=== PATIENT | female | born 1975 | race Caucasian/White ===

== ENCOUNTER → 2022-06-20 | Outpatient (CLI) | payer OTHER, SELFPAY ==
--- NOTE | 2022-06-20 13:30 | BI_ITS ---
MAMMOGRAPHY - BILATERAL SCREENING REASON FOR EXAM: Female, 47 years old. Routine annual screening examination. PERTINENT HISTORY: Non-contributory. TECHNIQUE: Digital bilateral breast darnell (3D mammographic acquisition) in the CC and MLO projections. 2-D mediolateral oblique (MLO) and craniocaudad (CC) views of both breasts were obtained. CAD: Full Field Digital Mammography with Computer Added Detection was performed. COMPARISON: Comparison is made with prior outside examination April 27, 2021. FINDINGS: Breast Composition: The breasts are heterogeneously dense, which may obscure small masses. There are no dominant masses or suspicious calcifications. No other significant abnormalities are identified. There has been no significant change since the prior study. BI/SCRN MAMM (CAD)W/DARNELL BILAT IMPRESSION: Stable bilateral screening mammogram. Yearly follow-up mammogram recommended. (A) ASSESSMENT CATEGORY: BIRADS Category 1: Negative. A letter regarding these results will be sent to the patient by the facility within 30 days. Approximately 10% of breast cancers are not detected by mammography. A normal mammogram should not delay biopsy of a clinically suspicious abnormality. [id number] Electronically Signed: Vincent Lay MD at 14:41 EDT ,
== END | disposition home or self-care (01) ==
PROVIDERS: PCP Family Medicine; Referring Provider Family Medicine; Visit Provider Family Medicine
DX: Z12.31 Encounter for screening mammogram for malignant neoplasm of breast (principal)
CPT/HCPCS: 77063; 77067

== ENCOUNTER → 2022-06-21 | Outpatient (CLI) | payer OTHER, SELFPAY ==
[2022-06-28 21:40] LABS: HPV HC, High Risk Negative
== END | disposition home or self-care (01) ==
PROVIDERS: PCP Family Medicine; Visit Provider Nurse Practitioner Family
DX: Z12.4 Encounter for screening for malignant neoplasm of cervix (principal)
CPT/HCPCS: 87624; 88175; G0145

== ENCOUNTER → 2022-06-29 | Outpatient (CLI) | payer OTHER, SELFPAY ==
[2022-06-29 17:51] LABS: Absolute Lymphocyte Count 2.58 X10^3/uL (0.83-4.51); Absolute Neutrophil Count 6.5 X10^3/uL (2.0-7.7); Basophil# 0.03 X10^3/uL; Basophil% 0.3 % (0-1); Eosinophil# 0.19 X10^3/uL; Eosinophils% 1.9 % (0-5); Hematocrit 41.3 % (37-47); Hemoglobin 14.1 g/dL (12.0-15.0); Lymphocyte # 2.58 X10^3/ul (0.83-4.51); Lymphocyte % 26.1 % (19-41); Mean Corp Hgb Conc 34.1 g/dL (32-36); Mean Corpuscular Hgb 30.2 pg (27.0-32.0); Mean Corpuscular Volume 88.4 fL (81-99); Monocyte# 0.59 X10^3/uL; NRBC Flagged by Analyzer 0 % (0-5); Neutrophil # 6.48 X10^3/uL (2.7-7.7); Neutrophil % 65.4 % (47-70); Platelet Count 275 K/mm3 (150-450); RBC Distribution Width CV 12.9 % (11.6-14.6); RBC Distribution Width SD 41.5 fl (35.1-43.9); Red Blood Count 4.67 M/mm3 (4.2-5.4); White Blood Count 9.9 K/mm3 (4.4-11.0)
[2022-06-29 18:09] LABS: ALB/GLOB Ratio 0.7 RATIO (0.9-2.4); AST(SGOT) < 3 U/L (15-37); Alanine Aminotransfer ALT/SGPT 23 U/L (13-56); Albumin, Serum 3.7 g/dL (3.2-5.0); Alkaline Phosphatase 73 U/L (45-117); Anion Gap 8 (5-15); BUN 13 mg/dL (7-18); BUN/Creat Ratio 13.3 RATIO (10-20); Calcium,Total 8.8 mg/dL (8.5-10.1); Chloride 107 mmol/L (98-107); Creatinine, Serum 0.98 mg/dL (0.55-1.02); EST Glomerular Filtration Rate 64 mL/min (>60); Est Glom Filt Rate - Afr Amer 78 mL/min (>60); Glucose 105 mg/dL (74-106); Potassium 3.7 mmol/L (3.5-5.1); Protein, Total 8.7 g/dL (6.4-8.2); Sodium Level 139 mmol/L (136-145); Thyroid Stim Hormone (TSH) 4.53 uIU/mL (0.358-3.74)
[2022-06-29 18:53] LABS: Hemoglobin A1c 4.8 % (3.8-5.6)
== END | disposition home or self-care (01) ==
PROVIDERS: PCP Family Medicine; Referring Provider Family Medicine; Visit Provider Family Medicine
DX: Z00.00 Encounter for general adult medical examination without abnormal findings (principal); Z13.1 Encounter for screening for diabetes mellitus; Z13.220 Encounter for screening for lipoid disorders; Z13.29 Encounter for screening for other suspected endocrine disorder; Z13.0 Encounter for screening for diseases of the blood and blood-forming organs and certain disorders involving the immune mechanism
CPT/HCPCS: 36415; 80053; 83036; 84443; 85025

== ENCOUNTER → 2022-08-16 | Outpatient (CLI) | payer OTHER, SELFPAY ==
[2022-08-16 15:40] LABS: Free T3 2.6 pg/mL (2.18-3.98); Thyroid Stim Hormone (TSH) 6.02 uIU/mL (0.358-3.74)
[2022-08-18 18:07] LABS: Anti-Thyroglobulin AB < 1.0 IU/mL (0.0-0.9); Thyroglobulin, Serum Qt. 26.1 ng/mL (1.5-38.5); Thyroid Peroxidase AB 37 IU/mL (0-34)
== END | disposition home or self-care (01) ==
LOC: MTLAB 13:06
PROVIDERS: PCP Family Medicine; Referring Provider Family Medicine; Visit Provider Family Medicine
DX: R79.89 Other specified abnormal findings of blood chemistry (principal)
CPT/HCPCS: 36415; 84432; 84439; 84443; 84481; 86376; 86800

== ENCOUNTER → 2022-11-11 | Outpatient (CLI) | payer OTHER, SELFPAY ==
[2022-11-11 10:55] LABS: Thyroid Stim Hormone (TSH) 4.19 uIU/mL (0.358-3.74)
== END | disposition home or self-care (01) ==
LOC: MTLAB 09:04
PROVIDERS: PCP Family Medicine; Referring Provider Family Medicine; Visit Provider Family Medicine
DX: E03.9 Hypothyroidism, unspecified (principal)
CPT/HCPCS: 36415; 84443

== ENCOUNTER → 2023-01-13 | Outpatient (CLI) | payer OTHER, SELFPAY ==
[2023-01-13 10:56] LABS: T4 Free Direct 1.14 ng/dL (0.76-1.46); Thyroid Stim Hormone (TSH) 1.94 uIU/mL (0.358-3.74)
== END | disposition home or self-care (01) ==
LOC: MTLAB 08:37
PROVIDERS: PCP Family Medicine; Referring Provider Family Medicine; Visit Provider Family Medicine
DX: E03.9 Hypothyroidism, unspecified (principal)
CPT/HCPCS: 36415; 84439; 84443

== ENCOUNTER 2023-01-17 09:00 | Outpatient (RCR) | payer OTHER, SELFPAY ==
--- NOTE | 2022-11-17 15:07 | HP.PTEVAL ---
Patient's Visit Information Visit Information Visit Information: JULIANNE DELANEY is a 47 year old F referred to Physical Therapy by Amy Holden DO with a diagnosis of R ankle pain. Date of Evaluation: 11/17/22 Physical Therapist: JAYLON Lockwood Visit Plan Frequency: 1-2x /Week Duration: 2 Months Plan: 1-2X/ week for 6 weeks for R ankle stretching (foam rollling), gait training, R ankle strength, balance and proprioception, with HEP HEP: standing heel and toe raises and towel gastroc stretch Subjective Subjective: Horse back riding accident years ago and put in a boot and no rehab. Progressively work. 2 MRI's. Walking on uneven ground hot and painful. The whole ankle hurts. She has had Plantar Fasciitis and orthotics. She had done some PT in [place] a year or so again and did a HEP and that has been over a year ago. Stretching does make it feel better. Pt wants to explore PT and room for improvement. She can not go up and down the stairs when it is flared up and it feels unstable. She has done a wobble board before and did not do much for me. If it is flared up she can't sleep but normally she can sleep. It is always swollen. She wear compression stockings at times when it is swollen. Pain R ankle pain: Pain Intensity (Out of 10): 0 Objective Objective: Gait: Walks with decrease stance time on the R LE, walks with decreased heel to toe gait pattern, small fast steps R ankle AROM DF-2, PF 44, INV 10, EV 8 L ankle AROM 0, 28, 24, 10 R ankle MMT: DF 9.5, PF 9.4, INV 5.7, EV 5.6 L ankle MMT 13.9, 15.4, 6.3, 7.2 Standing heel and toe raises: Pt is able X 10 each direction with decreased ability to toe raise ROM B but more so on the R than the L Stairs: walks up the stairs with some weakness present on the R and walks almost jumping off the step to avoid PF descend the stairs on the R Med to lateral mal 25.4, Fig 8 51, 25.1, 51, Very tight gastroc complex B Balance/Special Test Scores Lower Extremity Functional Score: 42 Goals Goal 1:: I HEP Goal Time Frame: 6-8 Weeks Goal 2:: Be able to walk with normal gait pattern with equal stance time on B LE's Goal Time Frame: 6-8 Weeks Goal 3:: Increase R ankle AROM (at time of the eval: R ankle AROM DF-2, PF 44, INV 10, EV 8 L ankle AROM 0, 28, 24, 10) Goal Time Frame: 6-8 Weeks Goal 4:: Increase R ankle strength (at time of the eval: R ankle MMT: DF 9.5, PF 9.4, INV 5.7, EV 5.6 L ankle MMT 13.9, 15.4, 6.3, 7.2) Goal Time Frame: 6-8 Weeks Goal 5:: Be able to go up and down the stairs recip with normal pattern and one hand rail for safety if needed. Goal Time Frame: 6-8 Weeks Rehabilitation Potential Rehabilitation Potential: Good Anticipated Interventions Patient/Client Instruction: Educate patient on: Condition and Plan of Care For the Purpose of:: To decrease pain, To decrease swelling/inflammation, To increase ROM, To improve nutrient delivery to tissue, To improve muscle performance and motor function, To improve ability to perform ADL's, To increase tolerance to activity/condition/position, To improve performance and independence with ADL's, To decrease level of supervision to perform tasks, To improve ability of physical actions for home/community/work/leisure, To improve gait and locomotor functions, To improve health of tissue, To decrease soft tissue restriction, To increase flexibility/ROM, To improve endurance, To improve balance and To improve safety with gait Therapeutic Exercise to Include: Strength training, Endurance training, Balance training, Body mechanics, Postural training, Neuromotor development, Passive ROM and Active ROM For the Purpose of:: To decrease pain, To decrease swelling/inflammation, To increase ROM, To improve nutrient delivery to tissue, To increase oxygenation perfusion, To improve muscle performance and motor function, To improve ability to perform ADL's, To increase tolerance to activity/condition/position, To improve performance and independence with ADL's, To decrease level of supervision to perform tasks, To improve ability of physical actions for home/community/work/leisure, To improve gait and locomotor functions, To improve health of tissue, To decrease soft tissue restriction, To increase flexibility/ROM and To improve safety with gait Functional Training to Include: Gait training For the Purpose of:: To improve gait and locomotor functions Manual Therapy Techniques to Include: Passive ROM For the Purpose of:: To increase ROM and To improve nutrient delivery to tissue Text: Thank you for the opportunity to evaluate your patient. For Medicare and Medicare HMO plans, please review the plan of care and approve it. It will need to be FAXED BACK to us at [phone] for Medicare purposes. For Medicare only, by signing this I certify the plan of care. Please let me know if there are questions or concerns regarding this plan of care. Physician Signature: Date:
--- NOTE | 2022-12-19 09:00 | HP.PTREVAL_ITS ---
Re-Evaluation Intro: Amy Holden, DO, It has been my pleasure to treat JULIANNE DELANEY over the last 8 visits for R ankle pain. Please see the progress note below for an update on the physical therapy plan of care! Subjective Subjective: Pt is able to do a little bit more. She feels that she is better. She is now having problems with her back since we pointed out her walking. Now all of her muscles are tight and trying to figure out what is too much tightness. She is now having B leg tightness because she is trying to walk better. She is mentally trying to walk with heels and toe with each step. Having a lot of hip soreness like she has not been using those muscles. Objective Objective/Function: R ankle AROM DF 4, PF 50, INV 16, EV 8 R ankle MMT: DF 13.5, PF 12, INV 7.8, EV 6.6 Walking: improved heel to toe gait pattern but still has increase stance time on the L and still decreased heel to toe gait pattern Tight B HS and IT band and gastroc B Plan Plan Plan: Focus more on giving HEP over the next 3 weeks at 1X/ week. Focus on HEP for strength next visit. 1-2X/ week for 6 weeks for R ankle stretching (foam rollling), gait training, R ankle strength, balance and proprioception, with HEP HEP: standing heel and toe raises and towel gastroc stretch Balance/Gait/Functional tests Balance/Special Test Scores Lower Extremity Functional Score: 52 Goals Goals Goal 1:: I HEP Goal Time Frame: 6-8 Weeks Goal Progress: Progressing Goal 2:: Be able to walk with normal gait pattern with equal stance time on B LE's Goal Time Frame: 6-8 Weeks Goal Progress: Progressing Goal 3:: Increase R ankle AROM (at time of the eval: R ankle AROM DF-2, PF 44, INV 10, EV 8 L ankle AROM 0, 28, 24, 10) Goal Time Frame: 6-8 Weeks Goal Progress: Progressing Goal 4:: Increase R ankle strength (at time of the eval: R ankle MMT: DF 9.5, PF 9.4, INV 5.7, EV 5.6 L ankle MMT 13.9, 15.4, 6.3, 7.2) Goal Time Frame: 6-8 Weeks Goal Progress: Progressing Goal 5:: Be able to go up and down the stairs recip with normal pattern and one hand rail for safety if needed. Goal Time Frame: 6-8 Weeks Anticipated Interventions Anticipated Interventions Patient/Client Instruction: Educate patient on: Condition and Plan of Care For the Purpose of:: To decrease pain, To decrease swelling/inflammation, To increase ROM, To improve nutrient delivery to tissue, To improve muscle perfo rmance and motor function, To improve ability to perform ADL's, To increase tolerance to activity/condition/position, To improve performance and independence with ADL's, To decrease level of supervision to perform tasks, To improve ability of physical actions for home/community/work/leisure, To improve gait and locomotor functions, To improve health of tissue, To decrease soft tissue restriction, To increase flexibility/ROM, To improve endurance, To improve balance and To improve safety with gait Therapeutic Exercise to Include: Strength training, Endurance training, Balance training, Body mechanics, Postural training, Neuromotor development, Passive ROM and Active ROM For the Purpose of:: To decrease pain, To decrease swelling/inflammation, To increase ROM, To improve nutrient delivery to tissue, To increase oxygenation perfusion, To improve muscle performance and motor function, To improve ability to perform ADL's, To increase tolerance to activity/condition/position, To improve performance and independence with ADL's, To decrease level of supervision to perform tasks, To improve ability of physical actions for home/community/work/leisure, To improve gait and locomotor functions, To improve health of tissue, To decrease soft tissue restriction, To increase flexibility/ROM and To improve safety with gait Functional Training to Include: Gait training For the Purpose of:: To improve gait and locomotor functions Manual Therapy Techniques to Include: Passive ROM For the Purpose of:: To increase ROM and To improve nutrient delivery to tissue Re-Evaluation Ending Re-evaluation ending: Please do not hesitate to contact me at [phone] by phone or if you have questions or concerns regarding this new plan of care! Sincerely, JAYLON Lockwood
--- NOTE | 2023-01-17 10:08 | HP.PTDCSUM ---
Discharge Summary D/C summary: It has been my pleasure to treat JULIANNE DELANEY referred by Amy Holden DO, with the diagnosis of R ankle pain for a total of 11 visit(s). Discharge Date: 01/17/23 Please see the following information for a summary of their discharge status. Subjective Subjective: Pt able to walk 3-4 miles without difficulty. She is happy with her movement and wants it to stay that way. She was actually able to jump rope. She wants to get better but is so much better as of right now Pain R ankle pain: Pain Intensity (Out of 10): 2 Overall Improvement % Improvement: 50 Objective Objective/Function: R ankle MMT: DF 13.3, PF 14.8, INV 6.9, EV 6.5 R ankle AROM D 7, PF 44, INV 15, EV 8 Stairs: up recip with 1 hand rail but descending she is not able to bend the R ankle descending the step without a hop Gait: Still walks with a little more stance time on the L but MUCH improved Goals Goal 1:: I HEP Goal Progress: Goal Met Goal 2:: Be able to walk with normal gait pattern with equal stance time on B LE's Goal Progress: Progressing Goal 3:: Increase R ankle AROM (at time of the eval: R ankle AROM DF-2, PF 44, INV 10, EV 8 L ankle AROM 0, 28, 24, 10) Goal Progress: Goal Met Goal 4:: Increase R ankle strength (at time of the eval: R ankle MMT: DF 9.5, PF 9.4, INV 5.7, EV 5.6 L ankle MMT 13.9, 15.4, 6.3, 7.2) Goal Progress: Goal Met Goal 5:: Be able to go up and down the stairs recip with normal pattern and one hand rail for safety if needed. Goal Progress: Progressing Plan Plan: DC PT to HEP D/C Information Discharge Comments: DC PT to HEP d/c sentence: If there are questions or concerns regarding this patient's physical therapy, please feel free to call me at [phone]. Thank you for the referral of this patient. Sincerely, Emilia Dunlap, MPT Balance/Gait/Functional tests Balance/Special Test Scores Lower Extremity Functional Score: 57 Improvement % Improvement: 50
== END 2023-01-17 19:00 | disposition home or self-care (01) ==
LOC: PT 09:00
PROVIDERS: PCP Family Medicine; Referring Provider Family Medicine; Visit Provider Family Medicine
DX: M25.571 Pain in right ankle and joints of right foot (principal); G89.29 Other chronic pain
CPT/HCPCS: 97110; 97140; 97161; 97530

== ENCOUNTER → 2023-04-13 | Outpatient (CLI) | payer OTHER, SELFPAY ==
--- OUTSIDE RECORDS SUMMARY | 2023-04-13 10:00 | XMS RPT_ITS | CCD ---
Author Name Unknown Address [address] [place] [address] Organization [facility] Care Team Providers Care Concrete Building Assembler Name Role Phone Amy Harry APRN.CNP Primary Care Provider Allergies Allergy Classification Reported Allergen(s) Allergy Type Date of Onset Reaction(s) Facility (3 sources) pork allergenic extract Drug Allergy 03-22-2016 Unknown [facility] (3 sources) Wheat gluten extract Drug Allergy 03-22-2016 Unknown [facility] Problems Active Problems Problem Classification Problem Date Documented Da te Episodic/Chronic Esophageal disorders (6 sources) Eosinophilic esophagitis; Translations: [Eosinophilic esophagitis] Onset: 03-22-2016 03-22-2016 Chronic Other nutritional; endocrine; and metabolic disorders (3 sources) Obese class I; Translations: [Obesity, unspecified] Onset: 09-15-2017 09-15-2017 Chronic Thyroid disorders (3 sources) Hypothyroidism; Translations: [Hypothyroidism, unspecified] Onset: 03-22-2016 03-22-2016 Chronic Past or Other Problems Problem Classification Problem Date Documented Da te Episodic/Chronic Allergic reactions (3 sources) Allergy to food; Translations: [Allergy to other foods] Onset: 03-22-2016 03-22-2016 Episodic Malaise and fatigue (3 sources) Fatigue; Translations: [Other fatigue] Onset: 09-15-2017 09-15-2017 Episodic Other connective tissue disease (3 sources) Plantar fasciitis; Translations: [Plantar fascial fibromatosis] Onset: 03-11-2020 03-11-2020 Episodic Other non-traumatic joint disorders (3 sources) Joint pain; Translations: [Pain in unspecified joint] Onset: 09-15-2017 09-15-2017 Episodic Other non-traumatic joint disorders (3 sources) Chronic ankle pain; Translations: [Pain in right ankle and joints of right foot] Onset: 03-11-2020 03-11-2020 Episodic Other screening for suspected conditions (not mental disorders or infectious disease) (4 sources) Breast finding ; Translations: [Inconclusive mammogram] Onset: 12-11-2018 12-11-2018 Episodic Residual codes; unclassified (3 sources) Edema, generalized; Translations: [Generalized edema] Onset: 09-15-2017 09-15-2017 Episodic Results Test Name Value Interpretation Reference Range Facil ity Encounters Encounter Date Encounter Type Care Provider Facility Start: 04-27-2021 Documentation procedure Mammography Coordinator [facility] Start: 04-27-2021 Letter encounter Mammography Coordin ator [facility] NOT LISTED Start: 04-27-2021 Telephone encounter Amy Harry APRN.CNP Work Phone: [facility] Procedures Date Procedure Procedure Detail Performing Clinician Start: 04-27-2021 End: 04-27-2021 Mammography Amy Harry APRN, .CNP Work Phone: Start: 04-05-2021 Adult depression scr eening assessment Amy Harry APRN.CNP Work Phone: Plan of Treatment Date Care Activity Detail Author Start: 04-13-2026 LIPID SCREEN LIPID SCREEN [facility] Start: 03-11-2025 PAP TESTING PAP TESTING [facility] Start: 04-13-2024 DIABETES SCREEN DIABETES SCREEN [facility] Start: 12-04-2022 HPV TESTING HPV TESTING [facility] Start: 04-27-2022 Mammography MAMMOGRAM [facility] Start: 04-05-2022 Adult depression scr eening assessment DEPRESSION SCREENING [facility] Start: 04-05-2022 ANNUAL PCP TEAM SUPERVISOR PRE WAVE SHERRELL DISEASE VISIT ANNUAL PCP TEAM CHRONIC DISEASE VISIT [facility] Start: 04-05-2022 COVID-19 VACCINE (1) COVID-19 VACCIN E (1) [facility] Payers Date Payer Category Payer Unknown SHYLASODELL DOSS FATMATA [id number] 2017-Present [phone] [address] [place] [address] Indemnity [id number] Social History Date Type Detail Facility Start: 08-22-2013 Tobacco smoking stat us NHIS Never smoked tobacco [facility] Start: 08-22-2013 Tobacco use and exposure Smoke less tobacco non-user [facility] Start: 04-05-2021 Alcohol intake Current drinke r of alcohol (finding) [facility] Start: 03-22-2016 History SDOH Alcohol Comment rarely [facility] Start: 1975 Sex Assigned At Not on file [facility] Start: 04-17-2021 End: 04-27-2021 Exposure to SARS-CoV-2 (event) Not sure [facility] Note 04-27-2021 Telephone Encounter - Beverly Hercules MA - 04/27/2021 5:05 PM EDTTelephone Encounter - Beverly Hercules MA - 04/27/2021 5:05 PM EDT Note Date & Type Note Facility 04-27-2021 Miscellaneous Notes Called patient and informed her patient voiced and understood Beverly Hercules MA ----- Message from Amy Harry APRN.MARYANNE sent at 04/27/2021 5:00 PM EDT ----- Normal. Amy Harry APRN.CNP documented in this encounter [facility] Note 04-27-2021 Letter - Mammography Coordinator - 04/27/2021 12:40 PM EDT Note Date & Type Note Facility 04-27-2021 Miscellaneous Notes [address] [address] April 27, 2021 PID: [id number] Pallavi Link [address] [place] [address] Dear Ms. Link, We are pleased to inform you that the results of your recent breast imaging exam on 04/27/2021 are normal. Early detection of cancer is very important. We also understand recommendations regarding breast cancer screening are controversial. Please discuss with your primary care provider which strategy is best for you and whether a mammogram is right for you. Your imaging studies and report will be kept on file at [facility] as part of your permanent medical record and are available for your continuing care. Thank you for allowing us to help in meeting your health care needs. Sincerely, Dr. Sarmiento Interpreting Radiologist [facility] (Normal over 40) documented in this encounter [facility] Progress note 04-27-2021 Note Date & Type Note Facility 04-27-2021 Note HNO ID: [id number] Author: JAVI Hernandez) Service: ? Author Type: Technologist Type: Progress Notes Filed: 04/27/2021 9:52 AM Note Text: Radiology Service Progress Note PATIENT NAME: Pallavi Link DATE OF SERVICE: April 27, 2021 TIME: 9:52 AM PATIENT IDENTITY VERIFICATION COMPLETED USING TWO (2) IDENTIFIERS: Name and Date of confirmed by patient verbally. FALL SCREENING: Has the patient had 2 falls in the last year or 1 fall with injury or currently using an Ambulatory Assistive Device (Walker, Cane, Wheelchair, Crutches, etc.)? No PATIENT GENDER DATA: Female. status: : No status: N/A PATIENT RELEVANT IMPLANT DATA REVIEWED: Not Applicable RADIOLOGY DEPARTMENT: Mammography PERIPHERAL IV DATA: Not applicable SIGNED BY: RT Mary(Nolvia) April 27, 2021 9:52 AM [facility] History of Present illness Narrative 04-27-2021 SHERICE HernandezR) - 04/27/2021 9:30 AM EDT Note Date & Type Note Facility 04-27-2021 History of Presen t illness Narrative Radiology Service Progress Note PATIENT NAME: Pallavi Link DATE OF SERVICE: April 27, 2021 TIME: 9:52 AM PATIENT IDENTITY VERIFICATION COMPLETED USING TWO (2) IDENTIFIERS: Name and Date of confirmed by patient verbally. FALL SCREENING: Has the patient had 2 falls in the last year or 1 fall with injury or currently using an Ambulatory Assistive Device (Walker, Cane, Wheelchair, Crutches, etc.)? No PATIENT GENDER DATA: Female. status: : No status: N/A PATIENT RELEVANT IMPLANT DATA REVIEWED: Not Applicable RADIOLOGY DEPARTMENT: Mammography PERIPHERAL IV DATA: Not applicable SIGNED BY: RT Mary(R) April 27, 2021 9:52 AM documented in this encounter [facility] Progress note 04-05-2021 Note Date & Type Note Facility 04-05-2021 Note HNO ID: [id number] Author: Amy Harry APRN.CHLORINE CELLS OPERATOR Service: ? Author Type: Nurse Practitioner Type: Progress Notes Filed: 04/13/2021 8:35 PM Note Text: This note was created using Unmetricriter. Subjective Pallavi Link is a 45 year old female here today for well adult exam. I reviewed past medical, surgical, social, and family histories today and updated chart. Allergies, chronic medications, and supplements were also reviewed. Since she had COVID in October her hair has been falling out She had a mild case, middle of the road, lasted 3 weeks Would like labs updated Sister had ME and brother had 2 MIs She had a stress test in 2019 Taking vitamin D supplement No hot flashes since COVID Now period every 20 days Hypothyroidism - weaned herself off the levothyroxine due to diarrhea and stomach pain. Feeling much better. Last time TSH checked she was taking it twice week and levels were within normal range. ? T1 L1 ? MENSTRUAL HISTORY LMP: About 3 months ago, sporadic Will get symptoms every month like she will get a periods Symptoms seem to be more - very irritable Flow Heavy, Duration at least 7 days sometimes more, Menarche 14 ? Sleep - really good. Got a new bed and a new bed Hot flashes and sweating, better in the winter ? Patient on HRT: No Ever used HRT: No ? SEXUAL HISTORY: sexually active with CONTRACEPTION: had vasectomy Hx of abnormal pap: Yes ASCUS in 2018 Last Pap done 03/11/20 = Normal Last HPV 12/04/17 = Negative ? VAGINAL SYMPTOMS: Denies abnormal discharge, itching, pain. Denies pain with sex. ? BREAST: Denies lumps, nipple discharge, and pain. Last Mammogram 03/26/20 = Normal ? URINARY SYMPTOMS: Denies dysuria, urgency, frequency, hematuria. Do you experience urinary incontinence? No ? FAMILY HISTORY: Breast Cancer: No Uterine Cancer: No Cervical Cancer: maybe Ovarian Cancer: No Osteoporosis: No Some elements copied from my note dated 03/11/20, which have been updated where appropriate, and all reflect current medical decision making from today, April 05, 2021. 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 Lawanda Mari PAST SURGICAL HISTORY Procedure Laterality Date - EGD 01/2016 Dr. Pruitt ALLERGIES Gluten and Pork Derived (Porcine) MEDICATIONS No prescriptions on file. FAMILY HISTORY Problem Relation Age of Onset - Hypertension Sister - Ischemic Heart Disease Sister - other (Cardiac stents) Sister - Hypertension Brother - Ischemic Heart Disease Brother 42 [place] - other (CABG) Brother - Diabetes Mother - Heart Mother - Dementia Father Social History Tobacco Use - Smoking status: Never Smoker - Smokeless tobacco: Never Used Substance Use Topics - Alcohol use: Yes Comment: rarely - Drug use: No Review of Systems Constitutional: Negative for appetite change, chills, fatigue, fever and unexpected weight change. HENT: Negative for congestion, ear pain, rhinorrhea and sore throat. Eyes: Negative for pain, discharge, itching and visual disturbance. Respiratory: Negative for cough, shortness of breath and wheezing. Cardiovascular: Negative for chest pain, palpitations and leg swelling. Gastrointestinal: Negative for abdominal pain, constipation, diarrhea, nausea and vomiting. Occasional heart burn, depends on what she eats Genitourinary: Negative for difficulty urinating. Musculoskeletal: Positive for arthralgias. Plantar fasciitis, ankle pain - did PT and hit helped but overall its about the same. Has some numbness in right foot, about the same. Plans on going back podiatry Skin: Negative for rash. Neurological: Negative for dizziness, tremors, weakness and headaches. Psychiatric/Behavioral: Negative for dysphoric mood and sleep disturbance. The patient is not nervous/anxious. Objective BP 126/74 Pulse 90 Temp 37.3 ?C (99.1 ?F) Ht 172.7 cm (5' 8 ) Wt 96.6 kg (213 lb) SpO2 97% BMI 32.39 kg/m? Physical Exam Constitutional: General: She is not in acute distress. Appearance: Normal appearance. She is well-developed. HENT: Head: Normocephalic and atraumatic. Right Ear: Hearing, tympanic membrane, ear canal and external ear normal. No drainage. Left Ear: Hearing, tympanic membrane, ear canal and external ear normal. No drainage. Nose: Nose normal. Mouth/Throat: Pharynx: Uvula midline. Eyes: General: Lids are normal. Right eye: No discharge. Left eye: No discharge. Extraocular Movements: Extraocular movements intact. Conjunctiva/sclera: Conjunctivae normal. Pupils: Pupils are equal, round, and reactive to light. Neck: Thyroid: No thyroid mass or thyromegaly. Vascular: No carotid bruit. Cardiovascular: Rate and Rhy (more content not included)... [facility] Progress note 06-05-2020 Note Date & Type Note Facility 06-05-2020 Note HNO ID: [id number] Author: Peg Beaver PT Service: ? Author Type: Physical Therapist Type: Progress Notes Filed: 06/05/2020 2:26 PM Note Text: 06/05/2020 [facility] PHYSICAL THERAPY DISCONTINUANCE OF CARE Plan of Care Period: Start of Care Date: 03/19/20 Last Visit Date: 03/19/2020 Therapy Program: Patient did not return for follow up care as planned. Please refer to last visit note for interventions provided for this episode of care. Assessment: Unable to formally assess goal achievement. Reason for Discontinuation of Care: Patient has not returned to therapy or scheduled additional follow-up appointments. Peg Beaver PT [facility] Evaluation note Note Date & Type Note Facility documented in this encounter [facility] Reason for referral (narrative) Diagnostic Procedure Only (Routine) - Closed Note Date & Type Note Facility Referral ID Status Reason Start Date Expiration Date V isits Requested Visits Authorized [id number] Closed Auto-Generate d Referral 04/05/2021 05/05/2022 1 1 [facility] Summary Purpose Family History No Family History Records FoundNo Family History Records FoundNo Family History Records Found Advance Directives No Advanced Directives Records FoundNo Advanced Directives Records FoundNo Advanced Directives Records Found Additional Source Comments INFORMATION SOURCE (unrecogn ized section and content) DATE CREATED AUTHOR AUTHOR'S ORGANIZ ATION 04/28/2021 [facility] DATE CREATED AUTHOR AUTHOR'S ORGANIZ ATION 04/30/2021 [facility] Source Comments (unrecognize d section and content) In the event this informatio n is protected by the Federal Confidentiality of Alcohol and Drug Abuse Patient Records regulations: The Federal rules restrict any use of the information to criminally investigate or prosecute any alcohol or drug abuse patient.[facility] the event this information is protected by the Federal Confidentiality of Alcohol and Drug Abuse Patient Records regulations: The Federal rules restrict any use of the information to criminally investigate or prosecute any alcohol or drug abuse patient.[facility] the event this information is protected by the Federal Confidentiality of Alcohol and Drug Abuse Patient Records regulations: The Federal rules restrict any use of the information to criminally investigate or prosecute any alcohol or drug abuse patient.[facility] Reason for Visit (unrecogniz ed section and content) Specialty Diagnoses / Procedures Referred By Sulaiman t Referred To Contact [facility] Diagnoses z12.31 Procedures Screening Mammogram Amy Harry APRN.CHLORINE CELLS OPERATOR [address] [place] [address] [facility] [address] [place] [address] Referral ID Status Reason Start Date Expiration Date V isits Requested Visits Authorized [id number] Closed Financial Clearance Not Required 04/20/2021 06/19/2021 1 1 Care Teams (unrecognized sec tion and content) Concrete Building Assembler Relationship Specialty Start Date End Date Amy Harry APRN.CHLORINE CELLS OPERATOR [address] [place] [address] PCP - General Family Practice 04/05/16 Concrete Building Assembler Relationship Specialty Start Date End Date Amy Harry APRN.CHLORINE CELLS OPERATOR [address] [place] [address] PCP - General Family Practice 04/05/16 FOR RECORDS PERTAINING TO PATIENTS WHO ARE OR HAVE BEEN ENROLLED IN A CHEMICAL DEPENDENCY/SUBSTANCEABUSE PROGRAM, SOME INFORMATION MAY BE OMITTED. This clinical summary was aggregated from multiple sources. Caution should be exercised in using it in the provision of clinical care. This summary normalizes information from multiple sources, and as a consequence, information in this document may materially change the coding, format and clinical context of patient data. In addition, data may be omitted in some cases. CLINICAL DECISIONS SHOULD BE BASED ON THE PRIMARY CLINICAL RECORDS. [employer] [facility]. provides no warranty or guarantee of the accuracy or completeness of information in this document.
[2023-04-13 11:09] LABS: Anion Gap 9 (5-15); BUN 12 mg/dL (7-18); BUN/Creat Ratio 15.1 RATIO (10-20); Calcium,Total 9.5 mg/dL (8.5-10.1); Chloride 107 mmol/L (98-107); EST Glomerular Filtration Rate 81 mL/min (>60); Est Glom Filt Rate - Afr Amer 98 mL/min (>60); Glucose 86 mg/dL (74-106); Potassium 3.8 mmol/L (3.5-5.1); Sodium Level 142 mmol/L (136-145)
== END | disposition home or self-care (01) ==
LOC: MFPLAB 09:16
PROVIDERS: Nurse Practitioner Family; PCP Family Medicine; Visit Provider Family Medicine
DX: I10 Essential (primary) hypertension (principal)
CPT/HCPCS: 36415; 80048

== ENCOUNTER → 2023-06-23 | Outpatient (CLI) | payer OTHER, SELFPAY ==
--- NOTE | 2023-06-23 09:58 | BI_ITS ---
MAMMOGRAPHY - BILATERAL SCREENING REASON FOR EXAM: Female, 48 years old. Routine annual screening examination. PERTINENT HISTORY: Non-contributory. TECHNIQUE: Digital bilateral breast alicia (3D mammographic acquisition) in the CC and MLO projections. 2-D mediolateral oblique (MLO) and craniocaudad (CC) views of both breasts were obtained. CAD: Full Field Digital Mammography with Computer Added Detection was performed. COMPARISON: Comparison is made with prior study dated June 20, 2022. FINDINGS: Breast Composition: The breasts are heterogeneously dense, which may obscure small masses. There are no dominant masses or suspicious calcifications. No other significant abnormalities are identified. There has been no significant change since the prior study. BI/SCREENING MAMM (CAD), BILAT IMPRESSION: Stable bilateral screening mammogram. Yearly follow-up mammogram recommended. (A) ASSESSMENT CATEGORY: BIRADS Category 1: Negative. A letter regarding these results will be sent to the patient by the facility within 30 days. Approximately 10% of breast cancers are not detected by mammography. A normal mammogram should not delay biopsy of a clinically suspicious abnormality. [id number] Electronically Signed: Vincent Lay MD at 10:52 EDT ,
== END | disposition home or self-care (01) ==
LOC: OPBI 09:57
PROVIDERS: Referring Provider Nurse Practitioner Family; Visit Provider Nurse Practitioner Family
DX: Z12.31 Encounter for screening mammogram for malignant neoplasm of breast (principal)
CPT/HCPCS: 77067

== ENCOUNTER 2023-11-19 08:22 | Emergency (ER) | payer OTHER, SELFPAY ==
[2023-11-19 08:23] VITALS: BP 150/93; PULSE 103; RESP 18; TEMP 36.7; O2SAT 98; BMI 31.1
--- NOTE | 2023-11-19 08:35 | ED.RN ---
pt walked back to room. denies sore throat, pain or diff breathing. reports that has happened beofre and needed scoped. unable to swallow oral secretions since last evening at 5pm. tried carbonated fresca x3 with no success.
--- NOTE | 2023-11-19 08:38 | EDS_ITS ---
HPI History of Present Illness Chief Complaint: Foreign Body Informant: patient Onset/Context/Timing Onset: Yesterday Context: Sudden Onset Timing: Continuous Worsened by: Nothing Relieved by: Nothing Narrative Narrative: Patient presents with esophageal food impaction that began last night. Patient states she has had similar episodes in the past. Patient states she is unable to swallow anything including her own saliva. Patient states she can feel something stuck in her chest. Patient states nothing makes it worse and nothing makes it better. Patient states she tried drinking soda last night with no improvement. Patient denies any fevers or chills. Patient denies any shortness of breath. [facility] Medical History (Updated 11/19/23 @ 09:[address] Antione Pillai, DO) Hypothyroidism Hypertension Home Medications ?Medication ?Instructions ?Recorded ?Last Taken ?Type levothyroxine 50 mcg tablet 50 mcg PO DAILY 11/19/23 Unknown History lisinopril 20 mg tablet 20 mg PO DAILY 11/19/23 Unknown History Allergy/AdvReac Type Severity Reaction Status Date / Time No Known Allergies Allergy Verified 11/19/23 08:23 Surgical History no surgical history no surgical history Social History Smoking Status: Never smoker ROS ROS ED Constitutional Constitutional ED: Denies chills or fever(s) Eyes Eyes: Denies blurry vision or change in vision ENT ENT ED: Reports rhinorrhea; Denies sore throat Cardiovascular Cardiovascular: Denies chest pain or palpitations Respiratory/Chest Respiratory/Chest: Denies cough or dyspnea Gastrointestinal Gastrointestinal: Denies abdominal pain, nausea or vomiting Genitourinary Genitourinary ED: Denies dysuria or hematuria Musculoskeletal Musculoskeletal: Denies back pain or neck pain Integumentary Denies abscess or rash Neurologic Neurologic: Denies headache(s) or weakness Allergic/Immunologic Allergic/Immunologic ED: Denies mouth swelling or urticaria EXAM Physical Exam Const Vital Signs: 11/19/23 08:23 11/19/23 08:31 Temperature 98.1 F Temperature Source Oral Pulse Rate 103 H Respiratory Rate 18 Respiratory Effort Normal Non-Labored Respiratory Pattern Normal Blood Pressure 150/93 H Blood Pressure Mean 112 Pulse Ox 98 Oxygen Delivery Method Room Air Positive well nourished and well developed General Appearance ED: well developed and NAD HEENT Reports moist mucous membranes Neck supple and no JVD Resp normal respiratory effort and clear to auscultation bilaterally Cardio regular rate and regular rhythm GI non-tender and non-distended Palpation: soft Neuro oriented x3, CN's II-XII intact bilaterally and no sensory deficits noted Sensorium / Orientation: alert Motor Exam: strength 5/5 throughout Psych mental status grossly normal Skin skin turgor normal MDM MDM Treatment and Re-Evaluation :: Patient was given a dose of IV glucagon. Patient was able to drink a whole can of soda after this. Patient was instructed to follow-up with her primary care physician in 5 to 7 days. Patient was instructed to return if worse in any way. Patient understood and was agreeable with the plan. All questions were answered. Discharge Plan Triage Chief Complaint: Foreign Body ED Provider: Antione Pillai Dx/Rx/DC Orders Clinical Impression: Food impaction of esophagus, Hypertension Instructions: ED Esophageal Foreign Body, Resolved Prescriptions: No Action lisinopril 20 mg tablet 20 mg PO DAILY levothyroxine 50 mcg tablet 50 mcg PO DAILY Primary Care Provider: Gavin Murphy Referrals: Gavin Murphy MD [Primary Care Provider] - 5-7 Days NOT,DEFINED [Non-Staff] - Print Language: Hungarian Disposition Disposition: Home, Self Care
[2023-11-19] MEDS: Glucagon 1 MG/ML Syringe IV (08:56)
[2023-11-19 09:50] VITALS: BP 136/74; PULSE 89; RESP 18; TEMP 36.8; O2SAT 98
== END 2023-11-19 09:51 | disposition home or self-care (01) ==
PROVIDERS: Emergency Provider Emergency Medicine; PCP Family Medicine; Visit Provider Emergency Medicine
DX: T18.9XXA Foreign body of alimentary tract, part unspecified, initial encounter (principal); I10 Essential (primary) hypertension; E03.9 Hypothyroidism, unspecified; Z79.899 Other long term (current) drug therapy; Z79.890 Hormone replacement therapy; W44.F3XA Food entering into or through a natural orifice, initial encounter
CPT/HCPCS: 96374; 99283; A4216; J1610

== ENCOUNTER 2024-02-13 11:43 | Day surgery (SDC) | payer OTHER, SELFPAY ==
[2024-02-13] VITALS (8 sets, daily range): BP systolic 94–130; BP diastolic 61–79; PULSE 78–93; RESP 12–18; TEMP 36.2–36.6; O2SAT 89–99; BMI 30.9
[2024-02-13 12:24] LABS: Internal QC Validated? YES +Cl - CLEAR BKGD; Pregnancy, Urine Negative Negative
--- NOTE | 2024-02-13 13:00 | EGD_PTH ---
PATIENT: JULIANNE DELANEY LOC: EN U#:[id number] AGE/SX: 48/F ROOM: RE02/13/[address]: Dr. Yaw Garduno DO : 1975 BED: DIS: 02/13/2024 SPEC #: [id number] RECD: 02/13/24 13:58 STATUS: JOSE JUAN NURY #: [id number] JESSICA: 02/13/24 13:[address]: Yaw Garduno DEPT: SURGICAL PATHOLOGY RECD BY: Geraldo Becerra ENTERED: 02/14/24 09:04 SP TYPE: EGD BIOPSY OTHR DR: Gavin Murphy MD Tissues: Esophageal mucous membrane Procedures: Surgery Specimen Level IV HEADER OPERATION: EGD, biopsy, APC PRE-OP DIAGNOSIS: Dysphagia TISSUE SUBMITTED: Esophageal biopsy MICROSCOPIC DIAGNOSIS Esophagus, Biopsy: 1.Squamous mucosa with 22 eosinophils per high power field (10 sprague counted) and increased thickness of basal zone (See Comment) 2.Foveolar mucosa JS, 02/17/[address] Sarah Denise has reviewed selected slides and agrees with the diagnosis. MICROSCOPIC DESCRIPTION Slides are reviewed. GROSS DESCRIPTION Received in fixative is one container labeled with the patient's name and designated Esophageal biopsy. The specimen consists of multiple irregular fragments of light mcdermott soft tissue that in aggregate measure 1.5 x 1.0 x 0.2 cm. The specimen is totally submitted in one cassette. MS/mr 02/14/2024 TC: CPT:14584
--- NOTE | 2024-02-13 13:09 | HP.PCM_ITS ---
HPI - General General Date of Admission: 02/13/24 Date of Service: 02/13/24 Chief Complaint: Dysphagia HPI Narrative JULIANNE DELANEY is a 48 F who presents Chief Complaint: Dysphagia Details: JULIANNE DELANEY is a 48 F who presents to the office today for establishment with [facility]. Pt has had issues with dysphagia for 11 years now. She had an EGD in the past which showed some esophagitis which was treated with omeprazole but she did not notice any change in her symptoms. She will often get food stuck in her esophagus while eating. She is unable to predict when this will happen and has not noticed any food triggers. She has gone to the ED for this one two occasions. Typically she will drink a lot of water and eventually regurgitate it back up. This is uncomfortable for her. She denies abdominal pain, n/v, constipation, diarrhea or blood in her stool. [facility] Medical History Thyroid disease Non-smoker History of stress test Hypothyroidism Hypertension Home Medications ?Medication ?Instructions ?Recorded ?Last Taken ?Type levothyroxine 50 mcg tablet 50 mcg PO DAILY 11/19/23 Unknown History lisinopril 20 mg tablet 20 mg PO DAILY 11/19/23 Unknown History multivitamin (Daily Multi-Vitamin 1 tab PO DAILY 02/09/24 Unknown History tablet) Allergy/AdvReac Type Severity Reaction Status Date / Time No Known Allergies Allergy Verified 02/13/24 12:23 Surgical History Hx of vein stripping Social History Smoking Status: Never smoker alcohol intake: never ROS Constitutional Constitutional: Denies fatigue, fever(s), poor appetite, weight gain or weight loss Gastrointestinal Gastrointestinal: Denies belching, bloating, change in bowel habits, change in stool character, chewing difficulty, coffee ground emesis, constipation, cramping, diarrhea, dyspepsia, dysphagia, early satiety, excessive flatus, fecal incontinence, heartburn, hematemesis, hematochezia, hemorrhoids, loose stools, melena, nausea, odynophagia, rectal bleeding, tenesmus, vomiting or weight changes Vital Signs Vital Signs Vital Signs: 02/13/24 12:32 02/13/24 12:32 Temperature 98 F Temperature Source Temporal Pulse Rate 78 Respiratory Rate 16 Respiratory Pattern Normal Blood Pressure 130/79 H Blood Pressure Mean 96 Blood Pressure Source Monitor Blood Pressure Position Semi-Fowlers Blood Pressure Location Left Arm Pulse Ox 99 Oxygen Delivery Method Room Air Weight Weight: 209 lb 7.026 oz Body Mass Index (BMI) 30.9 Physical Exam Const alert, oriented x3, no apparent distress and healthy appearing General Appearance: cooperative GI normal to inspection, nondistended, normoactive bowel sounds, soft to palpation, non-tender and non-distended Percussion: normal to percussion Rectal Exam: deferred Results Lab / Micro Data Labs: Laboratory Results - last 24 hr 02/13/24 12:14: Urine Test Negative Assessment & Plan Assessment/Plan (1) Dysphagia: PLAN: Assessment and Plan Assessment and Plan (1) Dysphagia: Plan: This is a 48 yo female pt here today for evaluation of dysphagia for 11 years. She has difficulty swallowing with food getting stuck a few times per week. It is unpredictable and not associated with certain foods. She will need to undergo EGD to evaluate for GERD, stricture or dysmotility. We can consider further diagnostics with manometry in the future. We discussed treatment option for esophageal dysmotility. -EGD w/ dilation if indicated -Consider manometry -f/u after procedure
--- NOTE | 2024-02-13 13:15 | PRE.ANES_ITS ---
ASA Classification* ASA Classification ASA Classification: 2 Assessment & Plan Anesthesia* Anesthesia Assessment Anesthesia Assessment: Discussed sedation and/or anesthesia options, risks, benefits, and alternatives with patient/parents/legal guardian/POA. Questions invited. The patient/parents/legal guardian/POA seems to understand and agrees to proceed with anesthesia plan. Reviewed the physical assessment, medical history, allergy history and patient home medications list prior to surgery/procedure/anesthetic and documented any changes. Performed airway and anesthesia risk assessments. Anesthesia Type Anesthesia Type: MAC History Source History Obtained from:: Patient and Chart Anesthesia Focused Assessment* Temperature: 98 F Pulse Rate: 78 Blood Pressure: 130/79 Respiratory Rate: 16 Pulse Ox: 99 Oxygen Delivery Method: Room Air Airway Assessment Mouth opens: 2 cm Mallampati Score: IV Teeth Condition: Caps/Crowns (Patient has a crown left lower molar. It is tight.) Neck Range of motion (ROM): Full ROM Focused Labs Anesthesia Preop lab: CBC WBC 9.9 K/mm3 (4.4-11.0) 06/29/22 14:19 RBC 4.67 M/mm3 (4.2-5.4) 06/29/22 14:19 Hgb 14.1 g/dL (12.0-15.0) 06/29/22 14:19 Hct 41.3 % (37-47) 06/29/22 14:19 Plt Count 275 K/mm3 (150-450) 06/29/22 14:19 CHEMISTRY Potassium 3.8 mmol/L (3.5-5.1) 04/13/23 09:16 Sodium 142 mmol/L (136-145) 04/13/23 09:16 BUN 12 mg/dL (7-18) 04/13/23 09:16 Creatinine 0.80 mg/dL (0.55-1.02) 04/13/23 09:16 Glucose 86 mg/dL (74-106) 04/13/23 09:16 TSH 1.94 uIU/mL (0.358-3.74) 01/13/23 08:47 COAG Urine Test Negative Negative 02/13/24 12:14 Pre-Assessment Diagnosis/Proposed Procedure Planned Operative Procedure(s): EGD Anesthesia History Anesthesia History - clinical rn liaison: Anesthesia History - clinical rn liaison Hx Hospitalization No 02/09/24 12:23 Any Problems With Anesthesia No 02/09/24 12:23 Cholinesterase deficiency No 02/09/24 12:23 You/Your Family Experience No 02/09/24 12:23 fever (hyperthermia) with Relationship Recent Exposure to Contagious No 02/13/24 12:32 Disease Does patient have nerve No 02/09/24 12:23 stimulator Patient instructed to have device shut off --Does patient have Pacemaker No 02/13/24 12:32 or ICD? When Was Last Pacemaker Check QUESTION #4 FULL TEXT: You/Your Family Experience fever (hyperthermia) with Anesthesia Last Oral Intake Last Oral intake: Last Oral Intake NPO since Meds taken in AM with sips of water? Meds patient instructed to take am of surgery Any additional information?: Yes NPO since: 00:00 Meds taken in AM with sips of water?: No PONV PONV - clinical rn liaison: PONV - clinical rn liaison Female Yes 02/09/24 12:23 HX of Motion Sickness No 02/09/24 12:23 HX of N/V After Surgery No 02/09/24 12:23 Non-Smoker Yes 02/09/24 12:23 Duration of Surgery greater No 02/09/24 12:23 than 60 minutes Number of Risk Factors 2 02/09/24 12:23 PONV Score Moderate Risk 02/09/24 12:23 Height & Weight Height & Weight: Anesthesia: Height & Weight Height 5 ft 9 in 02/13/24 12:32 Weight: 95 kg 02/13/24 12:32 Body Mass Index (BMI) 30.9 02/13/24 12:32 Respiratory Assessment Respiratory Assessment - clinical rn liaison: Respiratory Tract Infection Hx - clinical rn liaison Hx Respiratory Tract Infection No 02/09/24 12:23 STOP Sleep Apnea STOP Sleep Apnea - clinical rn liaison: STOP Sleep Apnea - clinical rn liaison Hx Hypertension Yes: CONTROLLED ON MED 02/09/24 12:23 Hx Sleep Apnea No 02/09/24 12:23 CPAP BIPAP Do you snore loudly (louder No 02/09/24 12:23 than talking or can be heard Do you often feel tired/ No 02/09/24 12:23 fatigued/ sleepy during daytime? Has anyone observed you stop No 02/09/24 12:23 breathing during sleep? STOP Results Negative 02/09/24 12:23 QUESTION #5 FULL TEXT : Do you snore loudly (louder than talking or can be heard through closed doors)? Tobacco Use History Tobacco Use History - clinical rn liaison: Tobacco Use History - clinical rn liaison Tobacco Use Smoking Status Never smoker 02/09/24 12:23 Hx Tobacco Use No 02/09/24 12:23 Years Smoking Packs Smoked per Day Smoking Cessation Date was within the last 15 years Hx Smoking Cessation Date Hx Smoking Cessation Counseling Hematologic Medial History Hematologic Hx - clinical rn liaison: Hematologic Medical Hx - driftman Hx of Blood Transfusion No 02/09/24 12:23 Hx of Transfusion in last 3 No 02/09/24 12:23 Months Date of Last Transfusion (if within last 3 months) Ever experience any problems No 02/09/24 12:23 with transfusion(s)? Specify any problems Hx of Preganancy in last 3 No 02/09/24 12:23 Months Nurse Filling Out Transfusion VCHRISTIN 02/09/24 12:23 & Questions: Date: 02/09/24 02/09/24 12:23 Time: 12:24 02/09/24 12:23 Patient unable to answer at this time (ie. confused, unrespo /Reproduction History /Reproductive History - clinical rn liaison: /Reproductive Hx- clinical rn liaison Hx Now Gestational Age (in weeks): EDC: Hx Hx Para Hx Section SAB PFSH Medical History Thyroid disease Non-smoker History of stress test Hypothyroidism Hypertension Home Medications ?Medication ?Instructions ?Recorded ?Last Taken ?Type levothyroxine 50 mcg tablet 50 mcg PO DAILY 11/19/23 Unknown History lisinopril 20 mg tablet 20 mg PO DAILY 11/19/23 Unknown History multivitamin (Daily Multi-Vitamin 1 tab PO DAILY 02/09/24 Unknown History tablet) Allergy/AdvReac Type Severity Reaction Status Date / Time No Known Allergies Allergy Verified 02/13/24 12:23 Surgical History Hx of vein stripping Social History Smoking Status: Never smoker alcohol intake: never Review of Systems (Anesthesia) ROS Narrative System reviewed and no additional complaints, except as documented.
--- NOTE | 2024-02-13 13:49 | OP.EGD_ITS ---
Patient Name: Pallavi Link Procedure Date: 02/13/2024 1:15 PM Date of : 1975 Age: 48 Procedure: Upper GI endoscopy Indications: Dysphagia Providers: Yaw Garduno DO Referring MD: Yaw Garduno DO Medicines: Monitored Anesthesia Care Patient Profile: This is a 48 year old female. Refer to note in patient chart for documentation of history and physical. Patient has symptoms of dysphagia with both liquids and solids. Complications: No immediate complications. Procedure: Pre-Anesthesia Assessment: - Prior to the procedure, a History and Physical was performed, and patient medications and allergies were reviewed. The patient is competent. The risks and benefits of the procedure and the sedation options and risks were discussed with the patient. All questions were answered and informed consent was obtained. Patient identification and proposed procedure were verified by the physician in the pre-procedure area. Mental Status Examination: alert and oriented. Airway Examination: normal oropharyngeal airway and neck mobility. Respiratory Examination: clear to auscultation. CV Examination: normal. Prophylactic Antibiotics: The patient does not require prophylactic antibiotics. Prior Anticoagulants: The patient has taken no anticoagulant or antiplatelet agents. ASA Grade Assessment: II - A patient with mild systemic disease. After reviewing the risks and benefits, the patient was deemed in satisfactory condition to undergo the procedure. The anesthesia plan was to use monitored anesthesia care (MAC). Immediately prior to administration of medications, the patient was re-assessed for adequacy to receive sedatives. The heart rate, respiratory rate, oxygen saturations, blood pressure, adequacy of pulmonary ventilation, and response to care were monitored throughout the procedure. The physical status of the patient was re-assessed after the procedure. After obtaining informed consent, the endoscope was passed under direct vision. Throughout the procedure, the patient's blood pressure, pulse, and oxygen saturations were monitored continuously. The gastroscope was introduced through the mouth, and advanced to the second part of duodenum. The upper GI endoscopy was accomplished without difficulty. The patient tolerated the procedure well. Scope In: 1:29:15 PM Scope Out: 1:40:33 PM Total Procedure Duration Time 0 hours 11 minutes 18 seconds Findings: Mucosal changes including ringed esophagus, feline appearance, longitudinal furrows, small-caliber esophagus, white plaques, circumferential folds, congestion (edema) and crepe paper esophagus were found in the middle third of the esophagus and in the lower third of the esophagus. Esophageal findings were graded using the Eosinophilic Esophagitis Endoscopic Reference Score (EoE-EREFS) as: Edema Grade 1 Present (decreased clarity or absence of vascular markings), Rings Grade 3 Severe (distinct rings that do not permit passage of diagnostic 8-10 mm endoscope), Exudates Grade 2 Severe (scattered white lesions involving 10 percent or greater of the esophageal surface area), Furrows Grade 2 Severe (vertical lines with clear depth) and Stricture present. Biopsies were obtained from the proximal and distal esophagus with cold forceps for histology of suspected eosinophilic esophagitis. Verification of patient identification for the specimen was done. Estimated blood loss was minimal. Coagulation for tissue destruction using argon plasma at 0.5 liters/minute and 20 herrera was successful. Estimated blood loss was minimal. A medium-sized hiatal hernia was present. The entire examined stomach was normal. No gross lesions were noted in the first portion of the duodenum. Impression: - Esophageal mucosal changes consistent with eosinophilic esophagitis. Treated with argon plasma coagulation (APC). - Medium-sized hiatal hernia. - Normal stomach. - No gross lesions in the first portion of the duodenum. - Biopsies were taken with a cold forceps for evaluation of eosinophilic esophagitis. Recommendation: - Discharge patient to home. - Resume previous diet. - Continue present medications. - Await pathology results. - Repeat upper endoscopy in 4 months for surveillance. - Pantoprazole 40mg twice daily Procedure Code(s): --- Professional --- 48437, Esophagogastroduodenoscopy, flexible, transoral; with ablation of tumor(s), polyp(s), or other lesion(s) (includes pre- and post-dilation and guide wire passage, when performed) 05125, 59,51, Esophagogastroduodenoscopy, flexible, transoral; with biopsy, single or multiple CPT copyright 2021 [employer]. All rights reserved. The codes documented in this report are preliminary and upon home care coordinator review may be revised to meet current compliance requirements. Yaw Garduno DO 02/13/2024 1:48:33 PM This report has been signed electronically. Number of Addenda: 0 Note Initiated On: 02/13/2024 1:15 PM
--- NOTE | 2024-02-13 13:49 | OP.CCLET_ITS ---
02/13/2024 Gavin Murphy Md Re : Upper GI endoscopy procedure for Pallavi Link Dear Jeffrey This procedure was performed on Tuesday, February 13, 2024. My impressions and recommendations are as follows: Impressions : - Esophageal mucosal changes consistent with eosinophilic esophagitis. Treated with argon plasma coagulation (APC). - Medium-sized hiatal hernia. - Normal stomach. - No gross lesions in the first portion of the duodenum. - Biopsies were taken with a cold forceps for evaluation of eosinophilic esophagitis. Recommendations : - Discharge patient to home. - Resume previous diet. - Continue present medications. - Await pathology results. - Repeat upper endoscopy in 4 months for surveillance. - Pantoprazole 40mg twice daily My findings are described in the full procedure note, which is enclosed. If I can be of further assistance, please feel free to contact me at . Sincerely, Yaw Friend, DO 02/13/2024 1:48:33 PM This report has been signed electronically.
--- NOTE | 2024-02-13 13:51 | PCM.POST.ANE ---
Anesthesia: Postop Eval I Current Vital Signs Temperature: 97.5 F Pulse Rate: 89 Blood Pressure: 104/61 Respiratory Rate: 18 Pulse Ox: 96 Oxygen Delivery Method: Room Air Assessment Airway patent: Yes Spontaneous unlabored respirations: Yes Mental status: Awake and Calm nausea: No Vomiting: No Anesthesia Complication: No Fluid Hydration Crystalloid volume administer (ml): 30 Total IV fluid infused: 30 Progress Note Anesthesia document: Postop Eval 1 completed: Yes
[2024-02-13] MEDS: Pantoprazole Sodium 40 MG in 0.9% Normal Saline (100mL MB+) 100 ML 330 MG IV (14:01)
--- NOTE | 2024-02-13 15:52 | PCM.POSTANE2 ---
Anesthesia Postop Eval I Sum Postop Eval Completion status Anesthesia document: Postop Eval 1 completed: Yes Anesthesia Postop Eval I Summary Anesthesia Postop Eval I Summary: Anesthesia Postop Eval I: Assessment Summary Airway patent Yes 02/13/24 13:52 [email or web address] Spontaneous unlabored Yes 02/13/24 13:52 [email or web address] respirations Mental status Awake,Calm 02/13/24 13:52 [email or web address] nausea No 02/13/24 13:52 [email or web address] Vomiting No 02/13/24 13:52 [email or web address] Anesthesia Postop Eval I: Fluid Summary Crystalloid volume administer 30 02/13/24 13:52 [email or web address] (ml) Colloids volume administered ( ml) Blood Product volume administered (ml) Total IV fluid infused 30 02/13/24 13:52 [email or web address] Anesthesia Postop Eval I: Summary Notes Anesthesia Complication No 02/13/24 13:52 [email or web address] Anesthesia Complication Comment: Post-operative progress note Anesthesia: Postop Eval II Evaluation Mental status: Awake and Calm Pain Level: 0 nausea: No Vomiting: No Complications Anesthesia Complication: No
== END 2024-02-13 14:49 | disposition home or self-care (01) ==
LOC: EN 11:43 → AC 11:45
PROVIDERS: Anesthesiology; PCP Family Medicine; Referring Provider Family Medicine; Visit Provider Internal Medicine Gastroenterology
PROC: 0DJ08ZZ Inspection of Upper Intestinal Tract, Via Natural or Artificial Opening Endoscopic (ICD-10-PCS; CPT 43235; principal; 2024-02-13 12:55)
DX: K22.2 Esophageal obstruction (principal); K44.9 Diaphragmatic hernia without obstruction or gangrene; I10 Essential (primary) hypertension; Z79.899 Other long term (current) drug therapy; R13.10 Dysphagia, unspecified
CPT/HCPCS: 43255; 43239; 81025; 88305; A4216; J2405

== ENCOUNTER → 2024-02-19 | Outpatient (CLI) | payer OTHER, SELFPAY ==
[2024-02-19 18:59] LABS: Vitamin D,25 Hydroxy 15.2 ng/mL
[2024-02-19 19:00] LABS: T4 Free Direct 1.06 ng/dL (0.76-1.46)
== END | disposition home or self-care (01) ==
LOC: MFPLAB 16:50
PROVIDERS: PCP Family Medicine; Referring Provider Family Medicine; Visit Provider Family Medicine
DX: Z13.21 Encounter for screening for nutritional disorder (principal); E03.9 Hypothyroidism, unspecified

== ENCOUNTER → 2024-06-24 | Outpatient (CLI) | payer OTHER, SELFPAY ==
--- NOTE | 2024-06-24 09:47 | BI_ITS ---
EXAM: SCREENING MAMM (CAD), BILAT DATE: 06/24/2024 CLINICAL HISTORY: F, Age 49 y/o , SCREENING BREAST CANCER RISK ASSESSMENT: Has not been calculated. TECHNIQUE: Bilateral screening digital breast tomosynthesis with 2D and 3D images. Computer aided detection. COMPARISON: Prior exam(s) dated 06/23/2023 and 06/20/2022. FINDINGS: TISSUE DENSITY: The breast tissue is composed of scattered area of fibroglandular density. Bilateral Breast Mammographic Findings: Benign round microcalcifications are seen in both breasts. No suspicious masses, suspicious cluster of microcalcifications, architectural distortion sign of malignancy is identified in either breast. BI/SCREENING MAMM (CAD), BILAT IMPRESSION: OVERALL FINAL ASSESSMENT: BIRADS 2 BENIGN FINDING RECOMMENDATION: Routine annual follow-up in 1 Year A letter with findings and recommendations will be mailed to the patient. Reading Location: [id number]
== END | disposition home or self-care (01) ==
LOC: OPBI 09:45
PROVIDERS: PCP Family Medicine; Referring Provider Family Medicine; Visit Provider Family Medicine
DX: Z12.31 Encounter for screening mammogram for malignant neoplasm of breast (principal)
CPT/HCPCS: 77067

== ENCOUNTER → 2024-08-30 | Outpatient (CLI) | payer OTHER, SELFPAY ==
[2024-08-30 13:29] LABS: Vitamin B12 547 pg/mL (180-914)
--- OUTSIDE RECORDS SUMMARY | 2024-08-30 17:42 | XMS RPT_ITS | CCD ---
Author Organization [facility] Care Team Providers Care Grain Unloader Machine Name Role Phone Kamryn VILLASEÑOR.Sandip MADDEN Primary Care Provider Jeffrey, Chalon Primary Care Unavailable Jeffrey, Chalon Attending Unavailable Jeffrey, Chalon Referring Unavailable SchwigerAntione Attending Unavailable Jeffrey, Chalon Primary Care Unavailable Atanasov, Janine Attending Unavailable Jeffrey, Chalon Referring Unavailable Jeffrey, Chalon Primary Care Unavailable Friend, Yaw Referring Unavailable Jeffrey, Chalon Primary Care Unavailable SailTai chavez Attending Unavailable Jeffrey, Chalon Referring Unavailable Friend, Yaw Attending Unavailable Jeffrey, Chalon Primary Care Unavailable Friend, Yaw Consulting Unavailable Jeffrey, Chalon Referring Unavailable Atanasov, Janine Attending Unavailable Jeffrey, Chalon Primary Care Unavailable Jeffrey, Chalon Referring Unavailable Friend, Yaw Attending Unavailable Jeffrey, Chalon Referring Unavailable Jeffrey, Chalon Primary Care Unavailable Jeffrey, Chalon Attending Unavailable Allergies Allergy Classification Reported Allergen(s) Allergy Type Date of Onset Reaction(s) Facility (3 sources) pork allergenic extract Drug Allergy 03-22-[address] [facility] (3 sources) Wheat gluten extract Drug Allergy 03-22-[address] [facility] Medications Current Medications Medication Drug Class(es) Dates Sig (Normalized) Sig (Original) levothyroxine (5 sources) l-Thyroxine Start: 01-26-2016 Synthroid Acti ve PO DAILY January 26, 2016 12:00am Start: 01-26-2016 Synthroid Acti ve PO DAILY January 26, 2016 1:00am predniSONE 10 mg oral tablet (5 sources) Start: 04-29-2020 take 4 tablets by mouth once daily, then take 3 tablets by mouth once daily, then take 2 tablets by mouth once daily, then take 1 tablet by mouth once daily Prednisone Active 10 MG PO DAILY April 29, 2020 12:00am 4 tablets daily for 3 days, then 3 tablets daily for 3 days, then 2 tablets daily for 3 days, then 1 tablet daily for 2 days sucralfate 1000 mg oral tablet (5 sources) Aluminum Complex Start: 01-26-2016 take 1 g by mouth three times daily Sucralfate Active 1 GM PO THREE TIMES A DAY January 26, 2016 1:00am Problems Active Problems Problem Classification Problem Date Documented Da te Episodic/Chronic Allergic reactions (8 sources) Allergy to food; Translations: [Allergy to other foods] Onset: 03-22-2016 03-22-2016 Episodic Esophageal disorders (6 sources) Eosinophilic esophagitis; Translations: [Eosinophilic esophagitis] Onset: 03-22-2016 03-22-2016 Chronic Other nutritional; endocrine; and metabolic disorders (3 sources) Obese class I; Translations: [Obesity, unspecified] Onset: 09-15-2017 09-15-2017 Chronic Other screening for suspected conditions (not mental disorders or infectious disease) (6 sources) Breast finding ; Translations: [Inconclusive mammogram] Onset: 12-11-2018 12-11-2018 Episodic Thyroid disorders (3 sources) Hypothyroidism; Translations: [Hypothyroidism, unspecified] Onset: 03-22-2016 03-22-2016 Chronic Past or Other Problems Problem Classification Problem Date Documented Da te Episodic/Chronic Malaise and fatigue (3 sources) Fatigue; Translations: [Other fatigue] Onset: 09-15-2017 09-15-2017 Episodic Other connective tissue disease (3 sources) Plantar fasciitis; Translations: [Plantar fascial fibromatosis] Onset: 03-11-2020 03-11-2020 Episodic Other gastrointestinal disorders (2 sources) Dysphagia, unspecified; Translations: [Dysphagia, unspecified] Onset: 03-05-2024 Episodic Other injuries and conditions due to external causes (1 source) Unspecified foreign body in esophagus causing other injury, initial encounter; Translations: [Unspecified foreign body in esophagus causing other injury, initial encounter] Onset: 12-11-2023 Episodic Other non-traumatic joint disorders (3 sources) Joint pain; Translations: [Pain in unspecified joint] Onset: 09-15-2017 09-15-2017 Episodic Other non-traumatic joint disorders (3 sources) Chronic ankle pain; Translations: [Pain in right ankle and joints of right foot] Onset: 03-11-2020 03-11-2020 Episodic Residual codes; unclassified (3 sources) Edema, generalized; Translations: [Generalized edema] Onset: 09-15-2017 09-15-2017 Episodic Results Test Name Value Interpretation Reference Range Facility SCREENING MAMM (CAD), Bethany n 06-24-2024 SCREENING MAMM (CAD), BILAT [facility] Imaging Services [address] [place] [address] SCREENING MAMM (CAD), BILAT MR#: [id number] Acct: [id number] Name: PALLAVI DELANEY Rep #: [id number] : 1975 F 49 From: Becca Petty PCP: Dr. Gavin Murphy MD Status: REG CLI Study: SCREENING MAMM (CAD), BILAT Date of Exam: 06/06 10/31 Exam# [id number] Ordering Dr: Gavin Murphy MD EXAM: SCREENING MAMM (CAD), BILAT DATE: 06/24/2024 CLINICAL HISTORY: F, Age 49 y/o , SCREENING BREAST CANCER RISK ASSESSMENT: Has not been calculated. TECHNIQUE: Bilateral screening digital breast tomosynthesis with 2D and 3D images. Computer aided detection. COMPARISON: Prior exam(s) dated 06/23/2023 and 06/20/2022. FINDINGS: TISSUE DENSITY: The breast tissue is composed of scattered area of fibroglandular density. Bilateral Breast Mammographic Findings: Benign round microcalcifications are seen in both breasts. No suspicious masses, suspicious cluster of microcalcifications, architectural distortion sign of malignancy is identified in either breast. BI/SCREENING MAMM (CAD), BILAT IMPRESSION: OVERALL FINAL ASSESSMENT: BIRADS 2 BENIGN FINDING RECOMMENDATION: Routine annual follow-up in 1 Year A letter with findings and recommendations will be mailed to the patient. Reading Location: [id number] CC: Dr. Gavin Murphy MD Corporate Quality Engineer: Signed Normal [facility] Gastroenterology Visit Repor ton 02-28-2024 Gastroenterology Visit Report [facility] Gastroenterology [address] [place] [address] OFFICE VISIT Date of Service: 02/28/24 MR#: [id number] Acct: [id number] Name: PALLAVI DELANEY Rep #: [id number] : 1975 Provider: KOLE Padilla Age/Sex: 48/F Location: [facility] Status: Signed Intake Vital Signs 02/13/24 12:32 Height 5 ft 9 in Intake Visit Reasons: Test Result Chief Complaint: heartburn, diffiuclty swallowing Allergies No Known Allergies Allergy (Verified 02/13/24 12:23) Have you fallen in the past year?: No Nurse's Note: OV 02.28.24 Pt here for f/u. Reports she has been experiencing nausea,heartburn, abdominal pain, constipation, and trouble swallowing. Reports having only two BM in the past two weeks. Pt takes pantoprazole daily. [facility] Medical History Thyroid disease Non-smoker History of stress test Hypothyroidism Hypertension Surgical History Hx of vein stripping Social History Smoking Status: Never smoker alcohol intake: never HPI HPI Chief Complaint: heartburn, diffiuclty swallowing Details: PALLAVI DELANEY, is a 48 F who presents to the office today for f/u. [facility] established 12.26.23 with complaints of dysphagia for 11 years. EGD in the past showing esophagitis. EGD 02.13.24; - Esophageal mucosal changes consistent with eosinophilic esophagitis. Treated with argon plasma coagulation (APC). - Medium-sized hiatal hernia. - Normal stomach. - No gross lesions in the first portion of the duodenum. - Biopsies were taken with a cold forceps for evaluation of eosinophilic esophagitis OV 02.28.24 Pt has been doing better with swallowing since the EGD. However, she is now having heartburn, lack of appetite and constipation. She does not have these type of symptoms at baseline so she is wondering why this is happening. SHe as started on pantoprazole 40 mg BID after the scope. She has been on omeprazole in the past which made her sick. ROS Const Constitutional: No fatigue, fever(s) or weight change ENT ENT: Positive for difficulty swallowing Gastro GI: Positive for abdominal pain, bloating, change in bowel habits, constipation, heartburn, difficulty swallowing, excessive flatus and nausea/dyspepsia; No belching, change in stool character, coffee ground emesis, cramping, diarrhea, feeling full early, incontinent of stools, Vomiting blood/hematemesis, Blood in stool, loose stools, Black,tarry stools, pain with swallowing, vomiting or other Musc Musculoskeletal: No joint pain Skin Skin: Positive for dry skin and itchy eyes; No yellowing of the eye Psych Psychiatric: No anxiety and No depression Endo Endocrine: No fatigue or weight change Aller/Imm Allergy/Immunologic: Positive for itchy eyes Mathieu/Lymp Hematologic/Lymphatic: No easy bleeding or easy bruising Exam Const General: cooperative and comfortable Nutritional Appearance: average body habitus and well nourished HEN[facility] Head: normal to inspection Ears: hearing grossly normal bilaterally Nose: external nose normal Face and sinus: normal facial exam Eyes General: appearance normal, both eyes and all related structures Neck Neck: normal visual inspection Chest Chest palpation inspection: normal inspection of the chest GI Inspection: normal to inspection Palpation: no hepatosplenomegaly Skin General: no rashes or lesions noted Neuro General: patient alert Extrem General: normal to inspection Psych Affect: normal affect Assessment and Plan Assessment and Plan (1) Eosinophilic esophagitis: Status: Acute Plan: This is a 48 yo female pt established with [facility] for difficulty swallowing. Pt underwent EGD .08.30 revealing eosinophilic esophagitis. SHe was started on pantoprazole 40 mg BID. She is now having heartburn, lack of apatite, and constipation. She did not have these symptoms prior to the EGD and starting pantoprazole. She has had similar issues after starting omeprazole in the past. Her new symptoms may be related to healing after EGD or side effect from new medication. Will discuss with Dr. Garduno for his recommendations. -Repeat EGD in 4 months -Will discuss with Dr. Garduno for his recommendation -Consider switching PPI (2) Heartburn: Status: Acute Coding Level of Care Code Off vis,est,level 3 Diagnoses Eosinophilic esophagitis K20.0 Heartburn R12 Clinical Quality Measures Falls Risk Screening/Assistive Devices Have you fallen in the past year?: No 02/28/24 1439 Date Janine Garcia Signature: Date (if applic (more content not included)... Normal [facility] T4 Free Directon 02-19-2024 T4 FREE DIRECT 1.06 ng/dL Normal 0.76-1.46 [facility] Comment on above: Order Comment: Order Date: 08/15/23 Order Info: [id number] - TSH Order Info: [id number] - T4F Performed By: #### L [id number], L506.0400 #### [facility] [address] [place], [place], [address] Thyroid Stim Hormone (TSH)on 02-19-2024 TSH 3.320 uIU/mL Normal 0.358-3.740 [facility] Comment on above: Order Comment: Order Date: 08/15/23 Order Info: [id number] - TSH Order Info: [id number] - T4F Performed By: #### L [id number], L506.0400 #### [facility] [address] [place], [place], [address] Vitamin D,25 Hydroxyon 02-18 Vitamin D 25-OH 15.2 ng/mL Normal [facility] Comment on above: Order Comment: Order Date: 08/15/23 Order Info: [id number] - VITD25 Result Comment: Emelia min D 25(OH) Status Range Deficiency <20 ng/mL (50nmol/L) Insufficiency 20 - 30 ng/mL (50 - 75 nmol/L) Sufficiency 30 - 100 ng/mL (75 - 250 nmol/L) Toxicity >100 ng/mL (>250 nmol/L) Performed By: #### L 506.1000 #### [facility] [address] [place], [address] EGD Reporton 02-13-2024 EGD Report [facility] Medical Records Department [address] [place] [address] EGD Report MR#: [id number] Acct: [id number] Name: PALLAVI DELANEY Rep #: [id number] : 1975 48 From: Yaw Garduno DO PCP: Dr. Gavin Murphy MD Status:REG [facility] Patient Name: Pallavi Delaney Procedure Date: 02/13/2024 1:15 PM Date of : 1975 Age: 48 Procedure: Upper GI endoscopy Indications: Dysphagia Providers: Yaw Garduno DO Referring MD: Yaw Garduno DO Medicines: Monitored Anesthesia Care Patient Profile: This is a 48 year old female. Refer to note in patient chart for documentation of history and physical. Patient has symptoms of dysphagia with both liquids and solids. Complications: No immediate complications. Procedure: Pre-Anesthesia Assessment: - Prior to the procedure, a History and Physical was performed, and patient medications and allergies were reviewed. The patient is competent. The risks and benefits of the procedure and the sedation options and risks were discussed with the patient. All questions were answered and informed consent was obtained. Patient identification and proposed procedure were verified by the physician in the pre-procedure area. Mental Status Examination: alert and oriented. Airway Examination: normal oropharyngeal airway and neck mobility. Respiratory Examination: clear to auscultation. CV Examination: normal. Prophylactic Antibiotics: The patient does not require prophylactic antibiotics. Prior Anticoagulants: The patient has taken no anticoagulant or antiplatelet agents. ASA Grade Assessment: II - A patient with mild systemic disease. After reviewing the risks and benefits, the patient was deemed in satisfactory condition to undergo the procedure. The anesthesia plan was to use monitored anesthesia care (MAC). Immediately prior to administration of medications, the patient was re-assessed for adequacy to receive sedatives. The heart rate, respiratory rate, oxygen saturations, blood pressure, adequacy of pulmonary ventilation, and response to care were monitored throughout the procedure. The physical status of the patient was re-assessed after the procedure. After obtaining informed consent, the endoscope was passed under direct vision. Throughout the procedure, the patient's blood pressure, pulse, and oxygen saturations were monitored continuously. The gastroscope was introduced through the mouth, and advanced to the second part of duodenum. The upper GI endoscopy was accomplished without difficulty. The patient tolerated the procedure well. Scope In: 1:29:15 PM Scope Out: 1:40:33 PM Total Procedure Duration Time 0 hours 11 minutes 18 seconds Findings: Mucosal changes including ringed esophagus, feline appearance, longitudinal furrows, small-caliber esophagus, white plaques, circumferential folds, congestion (edema) and crepe paper esophagus were found in the middle third of the esophagus and in the lower third of the esophagus. Esophageal findings were graded using the Eosinophilic Esophagitis Endoscopic Reference Score (EoE-EREFS) as: Edema Grade 1 Present (decreased clarity or absence of vascular markings), Rings Grade 3 Severe (distinct rings that do not permit passage of diagnostic 8-10 mm endoscope), Exudates Grade 2 Severe (scattered white lesions involving 10 percent or greater of the esophageal surface area), Furrows Grade 2 Severe (vertical lines with clear depth) and Stricture present. Biopsies were obtained from the proximal and distal esophagus with cold forceps for histology of suspected eosinophilic esophagitis. Verification of patient identification for the specimen was done. Estimated blood loss was minimal. Coagulation for tissue destruction using argon plasma at 0.5 liters/minute and 20 herrera was successful. Estimated blood loss was minimal. A medium-sized hiatal hernia was present. The entire examined stomach was normal. No gross lesions were noted in the first portion of the duodenum. Impression: - Esophageal mucosal changes consistent with eosinophilic esophagitis. Treated with argon plasma coagulation (APC). - Medium-sized hiatal hernia. - Normal stomach. - No gross lesions in the first portion of the duodenum. - Biopsies were taken with a cold forceps for evaluation of eosinophilic esophagitis. Recommendation: - Discharge patient to home. - Resume previous diet. - Continue present medications. - Await pathology results. - Repeat upper endoscopy in 4 months for surveillance. - Pantoprazole 40mg twice daily Procedure Code(s): --- Professional --- 36885, Esophagogastroduodenosc opy, flexible, transoral; with ablation of tumor(s), polyp(s), or other lesion(s) (includes pre- and post-dilation and guide wire passage, when performed) 24536, 59,51, Esophagogastroduodenosc opy, ks (more content not included)... [facility] MR/POSTOP.ANEon 02-13-2024 MR/POSTOP.[facility] Medical Records Department [address] [place] [address] Anesthesia Postop Eval I 02/13/24 1351 MR#: [id number] Acct: [id number] Name: PALLAVI DELANEY Roshan Rep #: [id number] : 1975 48 From: Vernon Khan PCP: Dr. Gavin Murphy MD Status:[facility] Y Race: C Location: [place] [address] Anesthesia: Postop Eval I Current Vital Signs Temperature: 97.5 F Pulse Rate: 89 Blood Pressure: 104/61 Respiratory Rate: 18 Pulse Ox: 96 Oxygen Delivery Method: Room Air Assessment Airway patent: Yes Spontaneous unlabored respirations: Yes Mental status: Awake and Calm nausea: No Vomiting: No Anesthesia Complication: No Fluid Hydration Crystalloid volume administer (ml): 30 Total IV fluid infused: 30 Progress Note Anesthesia document: Postop Eval 1 completed: Yes 02/13/24 135 Date Vernon Garcia Signature: Date CC: Signed [facility] MR/[id number] 02-13-2024 MR/POSTOPAN2 [facility] Medical Records Department [address] [place] [address] Anesthesia Postop Eval II 02/13/24 1552 MR#: [id number] Acct: [id number] Name: PALLAVI DELANEY Roshan Rep #: [id number] : 1975 48 From: Abdirashid Ulloa MD PCP: Dr. Gavin Murphy MD Status:[facility] Y Race: C Location: EN Anesthesia Postop Eval I Sum Postop Eval Completion status Anesthesia document: Postop Eval 1 completed: Yes Anesthesia Postop Eval I Summary Anesthesia Postop Eval I Summary: Anesthesia Postop Eval I: Assessment Summary Airway patent Yes 02/13/24 13:52 [email or web address] Spontaneous unlabored Yes 02/13/24 13:52 [email or web address] respirations Mental status Awake,Calm 02/13/24 13:52 [email or web address] nausea No 02/13/24 13:52 [email or web address] Vomiting No 02/13/24 13:52 [email or web address] Anesthesia Postop Eval I: Fluid Summary Crystalloid volume administer 30 02/13/24 13:52 [email or web address] (ml) Colloids volume administered ( ml) Blood Product volume administered (ml) Total IV fluid infused 30 02/13/24 13:52 [email or web address] Anesthesia Postop Eval I: Summary Notes Anesthesia Complication No 02/13/24 13:52 [email or web address] Anesthesia Complication Comment: Post-operative progress note Anesthesia: Postop Eval II Evaluation Mental status: Awake and Calm Pain Level: 0 nausea: No Vomiting: No Complications Anesthesia Complication: No 02/13/24 1552 Date Abdirashid Garcia Signature: Date CC: Signed Normal [facility] ,Urineon 02-13-2024 Beta HCG ( test) Ql (U) Negative Normal [facility] Comment on above: Result Comment: Very dilute urine specimens, as indicated by a low specific gravity, may not contain sales representative wire rope levels of hCG. If is still suspected, a first morning urine specimen should be collected 48 hours later and tested. Performed By: #### L 400.7600 #### [facility] [address] [place], [address] Surgery Specimen Level Trudy 02-13-2024 Surgery Specimen Level IV Patient Age/Sex Location Account Attending Physician PALLAVI DELANEY 48/F EN [id number] Yaw Garduno DO Specimen: [id number] Received: 02/13/24 Status: ARACELIGrisel Arleen Num: [id number] Spec Type: EGD BIOPSY Subm Dr: Yaw Garduno DO HEADER OPERATION: EGD, biopsy, APC PRE-OP DIAGNOSIS: Dysphagia TISSUE SUBMITTED: Esophageal biopsy MICROSCOPIC DIAGNOSIS Esophagus, Biopsy: 1.Squamous mucosa with 22 eosinophils per high power field (10 sprague counted) and increased thickness of basal zone (See Comment) 2.Foveolar mucosa MARTY, 02/17/[address] Sarah Denise has reviewed selected slides and agrees with the diagnosis. MICROSCOPIC DESCRIPTION Slides are reviewed. GROSS DESCRIPTION Received in fixative is one container labeled with the patient's name and designated Esophageal biopsy. The specimen consists of multiple irregular fragments of light mcdermott soft tissue that in aggregate measure 1.5 x 1.0 x 0.2 cm. The specimen is totally submitted in one cassette. MS/mr 02/14/2024 TC: CPT:50984 Patient Age/Sex Location Account Attending Physician PALLAVI DELANEY 48/F JIA [id number] Yaw Garduno DO Signed (signature on file) Dr. Tai Haque MD 02/17/24 1545 Normal [facility] Comment on above: Performed By: #### P SUIV #### [facility] [address] [place], [address] Gastroenterology Visit Repor ton 12-26-2023 Gastroenterology Visit Report [facility] Gastroenterology [address] [place] [address] OFFICE VISIT Date of Service: 12/26/23 MR#: [id number] Acct: [id number] Name: PALLAVI DELANEY Rep #: [id number] : 1975 Provider: KOLE Padilla Age/Sex: 48/F Location[place] [facility] Status: Signed Intake Vital Signs 11/19/23 08:23 Height 5 ft 8 in Intake Visit Reasons: Dysphagia Chief Complaint: Dysphagia Allergies No Known Allergies Allergy (Verified 12/26/23 13:00) Medications ???Medication ???Instructions ???Recorded ???Confirmed ???Type levothyroxine 50 mcg tablet 50 mcg PO DAILY 11/19/23 12/26/23 History lisinopril 20 mg tablet 20 mg PO DAILY 11/19/23 12/26/23 History Nurse's Note: Pt reports dysphagia for the last 11 years. Says her PCP did allery labs and she has allergies to dairy, pork and gluten. Sx continued even after eliminating these foods. Has issues everytime she eats even with soft foods. States she had an EGD a few years and it showed erosive esophagitis. Was tried on PPI but wasnt helpful. Does not have any heartburn or indigestion. No abdominal pain and BM are normal once a day. [facility] Medical History Hypothyroidism Hypertension Social History Smoking Status: Never smoker alcohol intake: never HPI HPI Chief Complaint: Dysphagia Details: PALLAVI DELANEY, is a 48 F who presents to the office today for establishment with [facility]. Pt has had issues with dysphagia for 11 years now. She had an EGD in the past which showed some esophagitis which was treated with omeprazole but she did not notice any change in her symptoms. She will often get food stuck in her esophagus while eating. She is unable to predict when this will happen and has not noticed any food triggers. She has gone to the ED for this one two occasions. Typically she will drink a lot of water and eventually regurgitate it back up. This is uncomfortable for her. She denies abdominal pain, n/v, constipation, diarrhea or blood in her stool. ROS Const Constitutional: No fatigue, fever(s) or weight change ENT ENT: Positive for difficulty swallowing Gastro GI: Positive for difficulty swallowing; No abdominal pain, belching, bloating, change in bowel habits, change in stool character, coffee ground emesis, constipation, cramping, diarrhea, heartburn, feeling full early, excessive flatus, incontinent of stools, Vomiting blood/hematemesis, Blood in stool, loose stools, Black,tarry stools, nausea/dyspepsia, pain with swallowing, vomiting or other Musc Musculoskeletal: No joint pain Skin Skin: No yellowing of the eye or itchy eyes Psych Psychiatric: No anxiety and No depression Endo Endocrine: No fatigue or weight change Aller/Imm Allergy/Immunologic: No itchy eyes Mathieu/Lymp Hematologic/Lymphatic: No easy bleeding or easy bruising Exam Const General: cooperative and comfortable Nutritional Appearance: average body habitus and well nourished [facility] Head: normal to inspection Ears: hearing grossly normal bilaterally Nose: external nose normal Face and sinus: normal facial exam Mouth: oral mucosae normal Throat: posterior oropharynx normal Eyes General: appearance normal, both eyes and all related structures Neck Neck: normal visual inspection Chest Chest palpation inspection: normal inspection of the chest and normal palpation of entire chest wall Resp Effort Inspection: normal respiratory effort Auscultation: Bilateral: Clear to Auscultation Cardio Palpation: normal PMI Rate: regular rate Rhythm: regular rhythm GI Inspection: normal to inspection Auscultation: normal bowel sounds Percussion: normal to percussion Palpation: no hepatosplenomegaly Skin General: no rashes or lesions noted Neuro General: patient alert Extrem General: normal to inspection Psych Affect: normal affect Assessment and Plan Assessment and Plan (1) Dysphagia: Plan: This is a 48 yo female pt here today for evaluation of dysphagia for 11 years. She has difficulty swallowing with food getting stuck a few times per week. It is unpredictable and not associated with certain foods. She will need to undergo EGD to evaluate for GERD, stricture or dysmotility. We can consider further diagnostics with manometry in the future. We discussed treatment option for esophageal dysmotility. -EGD w/ dilation if indicated -Consider manometry -f/u after procedure Coding Level of Care Code Off vis,new,level 4 Diagnoses Dysphagia R13.10 12/26/23 1344 Date Janine Schaferigner Signature: Date (if applicable) CC: Normal [facility] Emergency Department Summary on 11-19-2023 Emergency Department Summary [facility] Medical Records Department [address] [place] [address] Emergency Department Summary 11/19/23 MR#: [id number] Acct: [id number] Name: PALLAVI DELANEY Rep #: [id number] : 1975 48 From: Antione Pillai DO PCP: Dr. Gavin Murphy MD Status:[facility] ER Location: ED HPI History of Present Illness Chief Complaint: Foreign Body Informant: patient Onset/Context/Timing Onset: Yesterday Context: Sudden Onset Timing: Continuous Worsened by: Nothing Relieved by: Nothing Narrative Narrative: Patient presents with esophageal food impaction that began last night. Patient states she has had similar episodes in the past. Patient states she is unable to swallow anything including her own saliva. Patient states she can feel something stuck in her chest. Patient states nothing makes it worse and nothing makes it better. Patient states she tried drinking soda last night with no improvement. Patient denies any fevers or chills. Patient denies any shortness of breath. [facility] Medical History (Updated 11/19/23 @ 09:[address] Antione Pillai DO) Hypothyroidism Hypertension Home Medications ???Medication ???Instructions ???Recorded ???Last Taken ???Type levothyroxine 50 mcg tablet 50 mcg PO DAILY 11/19/23 Unknown History lisinopril 20 mg tablet 20 mg PO DAILY 11/19/23 Unknown History Allergy/AdvReac Type Severity Reaction Status Date / Time No Known Allergies Allergy Verified 11/19/23 08:23 Surgical History no surgical history no surgical history Social History Smoking Status: Never smoker ROS ROS ED Constitutional Constitutional ED: Denies chills or fever(s) Eyes Eyes: Denies blurry vision or change in vision ENT ENT ED: Reports rhinorrhea; Denies sore throat Cardiovascular Cardiovascular: Denies chest pain or palpitations Respiratory/Chest Respiratory/Chest: Denies cough or dyspnea Gastrointestinal Gastrointestinal: Denies abdominal pain, nausea or vomiting Genitourinary Genitourinary ED: Denies dysuria or hematuria Musculoskeletal Musculoskeletal: Denies back pain or neck pain Integumentary Denies abscess or rash Neurologic Neurologic: Denies headache(s) or weakness Allergic/Immunologic Allergic/Immunologic ED: Denies mouth swelling or urticaria EXAM Physical Exam Const Vital Signs: 11/19/23 08:23 11/19/23 08:31 Temperature 98.1 F Temperature Source Oral Pulse Rate 103 H Respiratory Rate 18 Respiratory Effort Normal Non-Labored Respiratory Pattern Normal Blood Pressure 150/93 H Blood Pressure Mean 112 Pulse Ox 98 Oxygen Delivery Method Room Air Positive well nourished and well developed General Appearance ED: well developed and NAD HEENT Reports moist mucous membranes Neck supple and no JVD Resp normal respiratory effort and clear to auscultation bilaterally Cardio regular rate and regular rhythm GI non-tender and non-distended Palpation: soft Neuro oriented x3, CN's II-XII intact bilaterally and no sensory deficits noted Sensorium / Orientation: alert Motor Exam: strength 5/5 throughout Psych mental status grossly normal Skin skin turgor normal [facility] Treatment and Re-Evaluation :: Patient was given a dose of IV glucagon. Patient was able to drink a whole can of soda after this. Patient was instructed to follow-up with her primary care physician in 5 to 7 days. Patient was instructed to return if worse in any way. Patient understood and was agreeable with the plan. All questions were answered. Discharge Plan Triage Chief Complaint: Foreign Body ED Provider: Antione Pillai Dx/Rx/DC Orders Clinical Impression: Food impaction of esophagus, Hypertension Instructions: ED Esophageal Foreign Body, Resolved Prescriptions: No Action lisinopril 20 mg tablet 20 mg PO DAILY levothyroxine 50 mcg tablet 50 mcg PO DAILY Primary Care Provider: Gavin Murphy Referrals: Gavin Murphy MD [Primary Care Provider] - 5-7 Days NOT,DEFINED [Non-Staff] - Print Language: Thai Disposition Disposition: Home, Self Care What to do if you have Problems For any increased pain, shortness of breath, bleeding, nausea or vomiting, chest pain, or any unexpected problems, contact your Primary Care Provider. Call [facility] ([phone]) or report to the closest Emergency Room. Call 911 if necessary. 11/19/23 0947 Cosigner Signature (if applicable): CC: Dr. Gavin Murphy MD Signed Normal [facility] Basophil percentageOrdered B y: Gisele Naqvi on 04-13-2023 Chloride [Moles/Vol] 107 mmol/L 98-107 [facility] Glucose [Mass/Vol] 86 mg/dL 74-106 [facility] Potassium [Moles/Vol] 3.8 mmol/L 3.5-5.1 [facility] Sodium [Moles/Vol] 142 mmol/L 136-145 [facility] Laboratory - Chemistry and C hemistry - challengeOrdered By: Gisele Naqvi on 04-13-2023 CO2 [Moles/Vol] 26.0 mmol/L 21.0-32.0 [facility] Urea nitrogen/Creatinine [Mass ratio] 15.1 mg/mg 10- [facility] No Panel InformationOrdered By: Gisele Naqvi on 04-13-2023 Estimated GFR (MDRD) Amer 98 mL/min >60 [facility] Comment on above: GFR Calc Estimated GFR (MDRD) Non-Af Amer 81 mL/min >60 [facility] Comment on above: Non- GFR Calc Serum or plasma calcium jo-ann urement (mass/volume)Ordered By: Gisele Naqvi on 04-13-2023 Calcium [Mass/Vol] 9.5 mg/dL 8.5-10.1 [facility] Serum or plasma creatinine m easurement (mass/volume)Ordered By: Gisele Naqvi on 04-13-2023 Creatinine [Mass/Vol] 0.80 mg/dL 0.55-1.02 [facility] Comment on above: The validity of the calculated GFR & GFRAA in patients over 70 years has not been determined. Clinical correlation is essential. Serum or plasma urea nitroge n measurement (mass/volume)Ordered By: Gisele Naqvi on 04-13-2023 Urea nitrogen [Mass/Vol] 12 mg/dL 7-18 [facility] Thin prep Papanicolaou smear with manual screeningOrdered By: Gisele Naqvi on 04-13-2023 Thin prep Papanicolaou smear with manual screening 9 - [facility] Laboratory - Chemistry and C hemistry - challengeOrdered By: Sandip Holden on 01-13-2023 Free T4 [Mass/Vol] 1.14 ng/dL 0.76-1.46 [facility] No Panel InformationOrdered By: Sandip Holden on 01-13-2023 Thyroid Stimulating Hormone (TSH) 1.94 uIU/mL 0.358-3.74 [facility] No Panel InformationOrdered By: Sandip Holden on 11-11-2022 Thyroid Stimulating Hormone (TSH) 4.19 uIU/mL 0.358-3.74 [facility] Laboratory - Chemistry and C hemistry - challengeOrdered By: Sandip Holden on 08-16-2022 Free T4 [Mass/Vol] 0.90 ng/dL 0.76-1.46 [facility] No Panel InformationOrdered By: Sandip Holden on 08-16-2022 Thyroglobulin Antibody < 1.0 IU/mL 0.0-0.[address] [facility] Comment on above: Thyroglobulin Antibo dy measured by Rosendo CoulterMethodology Thyroglobulin Level 26.1 ng/mL 1.5-38.5 [facility] Comment on above: According to the [facility] [employer] of Clinical Biochemistry,the reference interval for Thyroglobulin (TG) should berelated to euthyroid patients and not for patients whounderwent thyroidectomy. TG reference intervals for thesepatients depend on the residual mass of the thyroid tissueleft after surgery. Establishing a post-operative baselineis recommended. The assay limit of quantitation is 0.1ng/mLThyroglobulin measured by Rosendo Anupama ImmunometricAssay Free Triiodothyronine (T3) pg/dL 2.6 pg/mL 2.18-3.98 [facility] Thyroid Stimulating Hormone (TSH) 6.02 uIU/mL 0.358-3.74 [facility] Serum or plasma thyroperoxid ase antibody assay (units/volume)Ordered By: Sandip Holden on 08-16-2022 TPO Ab Qn 37 [IU]/mL 0-34 [facility] Comment on above: Performed at: [address] Director: Grayson Lau PhD, Phone: [phone] Absolute lymphocyte countOrd ered By: Sandip Holden on 06-29-2022 Lymphocytes Auto (Unsp spec) [#/Vol] 2.58 10*3/uL 0.83-4.51 [facility] Basophil percentageOrdered B y: Sandip Holden on 06-29-2022 Basophils/100 WBC (Bld) 0.3 % 0-1 [facility] Bilirubin [Mass/Vol] 0.50 mg/dL 0.20-1.00 [facility] Comment on above: For patients on eltr ombopag therapy, use of Dimension [place] TBIL is not recommended. Chloride [Moles/Vol] 107 mmol/L 98-107 [facility] Eosinophils/100 WBC (Bld) 1.9 % 0-5 [facility] Glucose [Mass/Vol] 105 mg/dL 74-106 [facility] Comment on above: Fasting Glucose resu lt from 100 to 125 mg/dL suggests IMPAIRED HOMEOSTASIS per A.D.A. criteria. Neutrophils (Bld) [#/Vol] 6.5 10*3/uL 2.0-7.7 [facility] Neutrophils/100 WBC (Bld) 65.4 % 47-70 [facility] Potassium [Moles/Vol] 3.7 mmol/L 3.5-5.1 [facility] Protein [Mass/Vol] 8.7 g/dL 6.4-8.2 [facility] Sodium [Moles/Vol] 139 mmol/L 136-145 [facility] WBC (Bld) [#/Vol] 9.9 10*3/uL 4.4-11.0 [facility] Blood erythrocytes count (nu mber/volume)Ordered By: Sandip Holden on 06-29-2022 RBC (Bld) [#/Vol] 4.67 10*6/uL 4.2-5.4 [facility] Blood hemoglobin measurement (mass/volume)Ordered By: Sandip Holden on 06-29-2022 Hemoglobin (Bld) [Mass/Vol] 14.1 g/dL 12.0-15.0 [facility] Blood lymphocytes/100 leukoc ytesOrdered By: Sandip Holden on 06-29-2022 Lymphocytes/100 WBC (Bld) 26.1 % 19-41 [facility] Blood monocytes/100 leukocyt esOrdered By: Sandip Holden on 06-29-2022 Monocytes/100 WBC (Bld) 6.0 % 0-10 [facility] Blood platelet mean volumeOr dered By: Sandip Holden on 06-29-2022 Platelet mean volume (Bld) [Entitic vol] 11.0 fL 6.2-12.0 [facility] Determination of erythrocyte mean corpuscular volume (MCV)Ordered By: Sandip Holden on 06-29-2022 MCV (RBC) [Entitic vol] 88.4 fL 81-99 [facility] Hematocrit Auto (Bld) [Volum e fraction]Ordered By: Sandip Holden on 06-29-2022 Hematocrit (Bld) [Volume fraction] 41.3 % 37-47 [facility] Laboratory - Chemistry and C hemistry - challengeOrdered By: Sandip Holden on 06-29-2022 ALP [Catalytic activity/Vol] 73 U/L 45-117 [facility] ALT [Catalytic activity/Vol] 23 U/L 13-56 [facility] CO2 [Moles/Vol] 24.0 mmol/L 21.0-32.0 [facility] Globulin (S) [Mass/Vol] 5.0 g/dL 2.2-4.2 [facility] Urea nitrogen/Creatinine [Mass ratio] 13.3 mg/mg 10-20 [facility] Laboratory - Hematology and Cell countsOrdered By: Sandip Holden on 06-29-2022 Erythrocyte distribution width (RBC) [Entitic vol] 41.5 fL 35.1-43.9 [facility] Erythrocyte distribution width (RBC) [Ratio] 12.9 % 11.6-14.6 [facility] Immature granulocytes/100 WBC (Bld) 0.300 % 0.0-0.9 [facility] Comment on above: IG% - Immature Granu locytes (promyelocytes, myelocytes and metamyelocytes) > 1% indicates that a LEFT SHIFT is Present. MCH (RBC) [Entitic mass] 30.2 pg 27.0-32.0 [facility] Nucleated RBC/100 WBC (Bld) [Ratio] 0 % 0-5 [facility] MCHC Auto (RBC) [Mass/Vol]Or dered By: Sandip Holden on 06-29-2022 MCHC (RBC) [Mass/Vol] 34.1 g/dL 32-36 [facility] No Panel InformationOrdered By: Sandip Holden on 06-29-2022 Estimated GFR (MDRD) Amer 78 mL/min >60 [facility] Comment on above: GFR Calc Estimated GFR (MDRD) Non-Af Amer 64 mL/min >60 [facility] Comment on above: Non- GFR Calc Thyroid Stimulating Hormone (TSH) 4.53 uIU/mL 0.358-3.74 [facility] Platelets bldOrdered By: Seb Holden on 06-29-2022 Platelets (Bld) [#/Vol] 275 10*3/uL 150-450 [facility] Serum or plasma albumin jo-ann urement (mass/volume)Ordered By: Sandip Holden on 06-29-2022 Albumin [Mass/Vol] 3.7 g/dL 3.2-5.0 [facility] Serum or plasma albumin/glob ulin mass ratioOrdered By: Sandip Holden on 06-29-2022 Albumin/Globulin [Mass ratio] 0.7 {ratio} 0.9-2.4 [facility] Serum or plasma calcium jo-ann urement (mass/volume)Ordered By: Sandip Holden on 06-29-2022 Calcium [Mass/Vol] 8.8 mg/dL 8.5-10.1 [facility] Serum or plasma creatinine m easurement (mass/volume)Ordered By: Sandip Holden on 06-29-2022 Creatinine [Mass/Vol] 0.98 mg/dL 0.55-1.02 [facility] Comment on above: The validity of the calculated GFR & GFRAA in patients over 70 years has not been determined. Clinical correlation is essential. Serum or plasma urea nitroge n measurement (mass/volume)Ordered By: Sandip Holden on 06-29-2022 Urea nitrogen [Mass/Vol] 13 mg/dL 7-18 [facility] Thin prep Papanicolaou smear with manual screeningOrdered By: Sandip Holden on 06-29-2022 Thin prep Papanicolaou smear with manual screening < 3 U/L 15-37 [facility] Thin prep Papanicolaou smear with manual screening 8 5-15 [facility] Whole blood hemoglobin A1c/t otal hemoglobin ratio (mass fraction)Ordered By: Sandip Holden on 06-29-2022 HbA1c (Bld) [Mass fraction] 4.8 % 3.8-5.6 [facility] Comment on above: Normal < 5.7 % Predi abetic 5.7 - 6.4 % Diabetic >or= 6.5 % Please note range changes. Cervical or vagninal specime n microscopic examination by cytology stain (reported asOrdered By: Pati Dominguez on 06-21-2022 Cytology report Cyto stain Doc (Cvx/Vag) Comment . [facility] Comment on above: The Pap smear is a s creening test designed to aid in thedetection of premalignant and malignant conditions of theuterine cervix. It is not a diagnostic procedure andshould not be used as the sole means of detecting cervicalcancer. Both false-positive and false-negative reports dooccur. Detection in cervical specim en of any of human papilloma virus (HPV) 16, 18, 31, 33,Ordered By: Pati Dominguez on 06-21-2022 HPV 16+18+31+33+35+39+45+5 1+52+56+58+59+68 DNA Probe+sig amp Ql (Cvx) Negative [facility] Laboratory - CytologyOrdered By: Pati Dominguez on 06-21-2022 Charger Tester Cyto stain Nom (Cvx/Vag) [ID] Comment . [facility] Comment on above: Dilma Berger, Cytot echnologist (ASCP) Laboratory - Miscellaneous t estsOrdered By: Pati Dominguez on 06-21-2022 Service comment (Unsp spec) [Interp] Comment . [facility] Comment on above: This liquid based Th inPrep(R) pap test was screened withthe use of an image guided system. Service comment (Unsp spec) [Interp] . . [facility] No Panel InformationOrdered By: Pati Dominguez on 06-21-2022 Pathology report final diagnosis Narrative Comment . [facility] Comment on above: NEGATIVE FOR INTRAEP ITHELIAL LESION OR MALIGNANCY. [facility] HNO ID: [id number] Author: Mammography Coordinator Service: ? Author Type: Physician Type: Letter Filed: 04/28/2021 11:34 PM Note Text: [address] [address] April 27, 2021 PID: [id number] Pallavi Delaney [address] [place] [address] Dear Ms. Delaney, We are pleased to inform you that [...] report will be kept on file at [facility] as part of your permanent medical record and are available for your continuing care. Thank you for allowing us to help in meeting your health care needs. Sincerely, Dr. Sarmiento Interpreting Radiologist [facility] (Normal over 40) Normal [facility] [place] 04-27-2021 PAULO Telephone (AGFAMPLE) PALLAVI DELANEY ([id number]) 1975 F Date Time Provider Department 04/27/21 SANDIP TRIPP During your visit today, we recorded the following information about you: Beverly Hercules MA 04/27/2021 5:05 PM Signed ----- Message from Sandip Tripp APRN.LASER BEAM TRIM OPERATOR sent at 04/27/2021 5:00 PM EDT ----- Normal. Sandip Tripp APRN.LASER BEAM TRIM OPERATOR Beverly Hercules MA 04/27/2021 5:06 PM Signed Called patient and informed her patient voiced and understood Beverly Hercules MA Allergies As of Date: 04/27/2021 Noted Allergy Reaction GLUTEN 03/22/2016 16 - Unknown PORK DERIVED (PORCINE) 03/22/2016 16 - Unknown Date Reviewed: 04/05/2021 Reviewed by: Lisa Ruiz MA - Fully Assessed Reason for Visit: Results [95] Problem List As Of Date 04/27/2021 Noted Resolved Eosinophilic esophagitis [K20.0] 03/22/2016 Hypothyroidism [E03.9] 03/22/2016 Food allergy [Z91.018] 03/22/2016 Gastroesophageal reflux disease with esophagiti*03/22/2016 Obesity, Class I, BMI 30-34.9 [E66.9] 09/15/2017 Arthralgia [M25.50] 09/15/2017 Fatigue [R53.83] 09/15/2017 Generalized edema [R60.1] 09/15/2017 Dense breast tissue [R92.2] 12/11/2018 Plantar fasciitis [M72.2] 03/11/2020 Chronic pain of right ankle [M25.571, G89.29] 03/11/2020 Encounter Status:Closed by BEVERLY HERCULES on 04/27/21 Normal [facility] STAN SCREENINGon 04-27-2021 STAN SCREENING * * *Final Report* * * DATE OF EXAM: Apr 27 2021 9:37AM LDW [id number] - [facility] SCREENING / PROCEDURE REASON: Encounter for screening mammogram for breast cancer * * * * Physician Interpretation * * * * #[id number] - STAN SCREENING BILATERAL DIGITAL SCREENING MAMMOGRAM WITH CAD: 04/27/2021 HISTORY: / Screening Mammogram-Patient reports NO symptoms. RESULT: TECHNIQUE: The study was acquired using full field digital technology and interpreted from soft copy. Current study was also evaluated with a Computer Aided Detection (CAD). Comparison is made to exams dated: 03/26/2020 mammogram - [facility], 01/23/2019 mammogram - [facility], and 01/01/2018 mammogram - [facility]. The tissue of both breasts is heterogeneously dense. This may lower the sensitivity of mammography. No significant masses, calcifications, or other findings are seen in either breast. There has been no significant interval change. IMPRESSION: NEGATIVE There is no mammographic evidence of malignancy. A 1 year screening mammogram is recommended. Fabiola peres/carmina:04/27/2021 12:40:29 Scrap Cutter(s): Gorge Hernandez (Nolvia)(M), [facility] letter sent: Normal over 40 Mammogram BI-RADS: 1 Negative Multiple national specialty organizations have released breast cancer screening guidelines for women at average risk for developing breast cancer - guidelines that are based on both evidence and opinion, yet differ on when to start and how often to screen for breast cancer. With representation from Breast Imaging, Internal Medicine, Women's Health, Family Medicine, and Medical/Surgical Oncology, the [facility] has carefully reviewed the data and reached the following consensus: 1) All women should engage in shared decision-making with their providers to decide when to start and how often to screen; 2) All women should have the opportunity to start screening mammography at age 40; 3) For women ages 45-55, we recommend annual screening mammograms; 4) For women ages 55 and over, we support both the transition from an annual to a biennial interval if this aligns more with patient's values and preferences, or continuation with annual screening; 5) All women should discuss with their providers when to stop screening mammograms. Corporate Quality Engineer: Carmina Transcribe Date/Time: Apr 27 2021 9:18A Dictated by : FABIOLA SARMIENTO MD This examination was interpreted and the report reviewed and electronically signed by: FABIOLA SARMIENTO MD on Apr 27 2021 12:40PM EST [id number] Normal [facility] CNPNon 04-16-2021 CNPN Telephone (AGFAMPLE) PALLAVI DELANEY ([id number]) 1975 F Date Time Provider Department 04/16/21 SANDIP TRIPP During your visit today, we recorded the following information about you: Lisa Ruiz MA 04/16/2021 3:17 PM Signed ----- Message from Sandip Tripp APRN.LASER BEAM TRIM OPERATOR sent at 04/16/2021 2:32 PM EST ----- Zinc level is normal. Sandip Tripp APRN.LASER BEAM TRIM OPERATOR Lisa Ruiz MA 04/16/2021 3:18 PM Signed Called left message on with results. (ok per life time consent. ) Lisa Ruiz MA Allergies As of Date: 04/16/2021 Noted Allergy Reaction GLUTEN 03/22/2016 16 - Unknown PORK DERIVED (PORCINE) 03/22/2016 16 - Unknown Date Reviewed: 04/05/2021 Reviewed by: Lisa Ruiz MA - Fully Assessed Reason for Visit: Results [95] Problem List As Of Date 04/16/2021 Noted Resolved Eosinophilic esophagitis [K20.0] 03/22/2016 Hypothyroidism [E03.9] 03/22/2016 Food allergy [Z91.018] 03/22/2016 Gastroesophageal reflux disease with esophagiti*03/22/2016 Obesity, Class I, BMI 30-34.9 [E66.9] 09/15/2017 Arthralgia [M25.50] 09/15/2017 Fatigue [R53.83] 09/15/2017 Generalized edema [R60.1] 09/15/2017 Dense breast tissue [R92.2] 12/11/2018 Plantar fasciitis [M72.2] 03/11/2020 Chronic pain of right ankle [M25.571, G89.29] 03/11/2020 Encounter Status:Closed by L[facility] Tele[facility] (JENIFFERMPTAMARA) PALLAVI DELANEY ([id number]) 1975 F Date Time Provider Department 04/14/21 SANDIP TRIPP During your visit today, we recorded the following information about you: Lisa Ruiz MA 04/14/2021 2:20 PM Signed ----- Message from Sandip Tripp APRN.CNP sent at 04/14/2021 1:13 PM EST ----- Vitamin D is low at 20. Recommend OTC Vitamin D3 up to 5,000 international unit(s) daily. ALEXA Jaramillo MA 04/14/2021 2:20 PM Signed Voicemail full. JANIS Hu MA 04/15/2021 5:10 PM Signed Patient informed of results and recommendations. Patient wanted Sandip to know that the vitamin D lab was $527 and that all of the blood work was $1626 was the estimate that was given to her when she registered for it. Advised patient she may need to call her insurance and see what lab is covered better for future blood work. JANIS Dawson APRN.CNP 04/16/2021 8:03 AM Signed Thank you. Sandip Tripp APRN.CNP Allergies As of Date: 04/14/2021 Noted Allergy Reaction GLUTEN 03/22/2016 16 - Unknown PORK DERIVED (PORCINE) 03/22/2016 16 - Unknown Date Reviewed: 04/05/2021 Reviewed by: Lisa Ruiz MA - Fully Assessed Reason for Visit: Results [95] Problem List As Of Date 04/14/2021 Noted Resolved Eosinophilic esophagitis [K20.0] 03/22/2016 Hypothyroidism [E03.9] 03/22/2016 Food allergy [Z91.018] 03/22/2016 Gastroesophageal reflux disease with esophagiti*03/22/2016 Obesity, Class I, BMI 30-34.9 [E66.9] 09/15/2017 Arthralgia [M25.50] 09/15/2017 Fatigue [R53.83] 09/15/2017 Generalized edema [R60.1] 09/15/2017 Dense breast tissue [R92.2] 12/11/2018 Plantar fasciitis [M72.2] 03/11/2020 Chronic pain of right ankle [M25.571, G89.29] 03/11/2020 Encounter Status:Closed by LISA RUIZ on 04/14/21 [facility] ABIMBOLAN Telephone (ELIDAFAMPLE) PALLAVI DELANEY ([id number]) 1975 F Date Time Provider Department 04/14/21 SANDIP TRIPP During your visit today, we recorded the following information about you: Lisa Ruiz MA 04/14/2021 7:42 AM Signed ----- Message from Sandip Tripp APRN.LASER BEAM TRIM OPERATOR sent at 04/13/2021 8:07 PM EST ----- TSH is slightly elevated at 5.7, lower than last time. Okay to monitor off medication. Cholesterol is mildly elevated, no need for medication at this time, decrease fats and increase fiber. Other labs are normal. Sandip Tripp APRN.LASER BEAM TRIM OPERATOR Lisa Ruiz MA 04/14/2021 7:42 AM Signed Patient notified. Lisa Ruiz MA Allergies As of Date: 04/14/2021 Noted Allergy Reaction GLUTEN 03/22/2016 16 - Unknown PORK DERIVED (PORCINE) 03/22/2016 16 - Unknown Date Reviewed: 04/05/2021 Reviewed by: Lisa Ruiz MA - Fully Assessed Reason for Visit: Results [95] Problem List As Of Date 04/14/2021 Noted Resolved Eosinophilic esophagitis [K20.0] 03/22/2016 Hypothyroidism [E03.9] 03/22/2016 Food allergy [Z91.018] 03/22/2016 Gastroesophageal reflux disease with esophagiti*03/22/2016 Obesity, Class I, BMI 30-34.9 [E66.9] 09/15/2017 Arthralgia [M25.50] 09/15/2017 Fatigue [R53.83] 09/15/2017 Generalized edema [R60.1] 09/15/2017 Dense breast tissue [R92.2] 12/11/2018 Plantar fasciitis [M72.2] 03/11/2020 Chronic pain of right ankle [M25.571, G89.29] 03/11/2020 Encounter Status:Closed by LISA RUIZ on 04/14/21 Normal [facility] CBC panel Auto (Bld)on 04-13 Erythrocyte distribution width (RBC) [Ratio] 12.6 % Normal 11.5-15.0 [facility] Comment on above: Order Comment: Marlo pelaez Type: BLOOD SPECIMEN Ordering Facility: [facility] Address: [address] [address] Performed By: #### 5 8410-2 #### [facility] CLIA [id number] [address] [place] [address] [facility] Hematocrit (Bld) [Volume fraction] 42.1 % Normal 36.0-46.0 [facility] Comment on above: Order Comment: Marlo pelaez Type: BLOOD SPECIMEN Ordering Facility: [facility] Address: [address] [place] [address] Performed By: #### 5 8410-2 #### [facility] CLIA [id number] [address] [place], [place] [address] [place] [address] [place] OF [facility] Hemoglobin (Bld) [Mass/Vol] 14.5 g/dL Normal 11.5-15.5 [facility] Comment on above: Order Comment: Speci men Type: BLOOD SPECIMEN Ordering Facility: [facility] Address: [address] [place] [address] Performed By: #### 5 8410-2 #### [facility] CLIA [id number] [address] OF [facility] MCH (RBC) [Entitic mass] 30.7 pg Normal 26.0-34.0 [facility] Comment on above: Order Comment: Speci men Type: BLOOD SPECIMEN Ordering Facility: [facility] Address: [address] [place] [address] Performed By: #### 5 8410-2 #### [facility] CLIA [id number] [address] [place] [address] [facility] MCHC (RBC) [Mass/Vol] 34.4 g/dL Normal 30.5-36.0 [facility] Comment on above: Order Comment: Speci men Type: BLOOD SPECIMEN Ordering Facility: [facility] Address: [address] [place] [address] Performed By: #### 5 8410-2 #### [facility] CLIA [id number] [address] [place] [address] [place] MCV (RBC) [Entitic vol] 89.0 fL Normal 80.0-100.0 [facility] Comment on above: Order Comment: Speci men Type: BLOOD SPECIMEN Ordering Facility: [facility] Address: [address] [place] [address] Performed By: #### 5 8410-2 #### [facility] CLIA [id number] [address] OF [facility] Platelet mean volume (Bld) [Entitic vol] 10.8 fL Normal 9.0-12.7 [facility] Comment on above: Order Comment: Speci men Type: BLOOD SPECIMEN Ordering Facility: [facility] Address: [address] [place] [address] Performed By: #### 5 8410-2 #### [facility] CLIA [id number] [address] [place] [address] [place] Platelets (Bld) [#/Vol] 243 10*3/uL Normal 150-400 [facility] Comment on above: Order Comment: Speci men Type: BLOOD SPECIMEN Ordering Facility: [facility] Address: [address] [place] [address] Performed By: #### 5 8410-2 #### [facility] CLIA [id number] [address] [place], [place] [address] [place] [address] [place] [facility] RBC (Bld) [#/Vol] 4.73 10*6/uL Normal 3.90-5.20 [facility] Comment on above: Order Comment: Speci men Type: BLOOD SPECIMEN Ordering Facility: [facility] Address: [address] [place] [address] Performed By: #### 5 8410-2 #### [facility] CLIA [id number] [address] [place] [address] [place] WBC (Bld) [#/Vol] 7.89 10*3/uL Normal 3.70-11.00 [facility] Comment on above: Order Comment: Speci men Type: BLOOD SPECIMEN Ordering Facility: [facility] Address: [address] [place] [address] Performed By: #### 5 8410-2 #### [facility] CLIA [id number] [address] [place] [address] [facility] Comprehensive metabolic 2000 panelon 04-13-2021 Albumin [Mass/Vol] 4.5 g/dL Normal 3.9-4.9 [facility] Comment on above: Order Comment: Speci men Type: BLOOD SPECIMEN Ordering Facility: [facility] Address: [address] [address] Performed By: #### 3 016-3, 82002-9 #### [facility] CLIA [id number] [address] [place], [place] [address] [place] [address] [place] OF [facility] ALP [Catalytic activity/Vol] 84 U/L Normal 34-123 [facility] Comment on above: Order Comment: Speci men Type: BLOOD SPECIMEN Ordering Facility: [facility] Address: [address] [place] [address] Performed By: #### 3 016-3, 46778-5 #### [facility] CLIA [id number] [address] [facility] ALT With P-5'-P [Catalytic activity/Vol] 18 U/L Normal 7-38 [facility] Comment on above: Order Comment: Speci men Type: BLOOD SPECIMEN Ordering Facility: [facility] Address: [address] [place] [address] Performed By: #### 3 016-3, 94566-1 #### [facility] CLIA [id number] [address] OF [facility] Anion gap [Moles/Vol] 11 mmol/L Normal 9-18 [facility] Comment on above: Order Comment: Speci men Type: BLOOD SPECIMEN Ordering Facility: [facility] Address: [address] [place] [address] Performed By: #### 3 016-3, 46210-3 #### [facility] CLIA [id number] [address] [place], [place] [address] [place] [address] OF [facility] AST With P-5'-P [Catalytic activity/Vol] 8 U/L Low 13-35 [facility] Comment on above: Order Comment: Speci men Type: BLOOD SPECIMEN Ordering Facility: [facility] Address: [address] [address] Performed By: #### 3 016-3, 13372-7 #### [facility] CLIA [id number] [address] [place] [address] [place] Bilirubin [Mass/Vol] 0.8 mg/dL Normal 0.2-1.3 [facility] Comment on above: Order Comment: Speci men Type: BLOOD SPECIMEN Ordering Facility: [facility] Address: [address] [place] [address] Performed By: #### 3 016-3, 71568-9 #### [facility] CLIA [id number] [address] [place] [address] [place] Calcium [Mass/Vol] 9.1 mg/dL Normal 8.5-10.2 [facility] Comment on above: Order Comment: Speci men Type: BLOOD SPECIMEN Ordering Facility: [facility] Address: [address] [place] [address] Performed By: #### 3 016-3, 17360-5 #### [facility] CLIA [id number] [address] [place] [address] [place] Chloride [Moles/Vol] 101 mmol/L Normal 97-105 [facility] Comment on above: Order Comment: Speci men Type: BLOOD SPECIMEN Ordering Facility: [facility] Address: [address] [place] [address] Performed By: #### 3 016-3, 54495-2 #### [facility] CLIA [id number] [address] [place] [address] [place] CO2 [Moles/Vol] 27 mmol/L Normal 22-30 [facility] Comment on above: Order Comment: Speci men Type: BLOOD SPECIMEN Ordering Facility: [facility] Address: [address] [place] [address] Performed By: #### 3 016-3, 45912-7 #### [facility] CLIA [id number] [address] [place] [address] [place] Creatinine [Mass/Vol] 0.72 mg/dL Normal 0.58-0.96 [facility] Comment on above: Order Comment: Speci men Type: BLOOD SPECIMEN Ordering Facility: [facility] Address: [address] [address] Performed By: #### 3 016-3, 15998-8 #### [facility] CLIA [id number] [address] [place], [place] [address] [place] ESTIMATED GLOMERULAR FILTRATION RATE 104 mL/min/1.73m??? Normal >=60 [facility] Comment on above: Order Comment: Marlo pelaez Type: BLOOD SPECIMEN Ordering Facility: [facility] Address: [address] [place] [address] Result Comment: Kriss mated Glomerular Filtration Rate (eGFR) is calculated using the 2020 CKD-EPI creatinine equation. This equation utilizes serum creatinine, sex, and age as parameters. The creatinine assay has traceable calibration to isotope dilution-mass spectrometry. Refer to KDIGO guidelines for clinical interpretation. In patients with unstable renal function, e.g. those with acute kidney injury, the eGFR may not accurately reflect actual GFR. Performed By: #### 3 016-3, 77000-2 #### [facility] CLIA [id number] [address] [place] [address] [place] Glucose [Mass/Vol] 101 mg/dL High 74-99 [facility] Comment on above: Order Comment: Marlo pelaez Type: BLOOD SPECIMEN Ordering Facility: [facility] Address: [address] [place] [address] Result Comment: The [place] Diabetes Association (ADA) provides guidance for cutoff values for fasting glucose and random glucose. The ADA defines fasting as no caloric intake for at least 8 hours. Fasting plasma glucose results between 100 to 125 mg/dL indicate increased risk for diabetes (prediabetes). Fasting plasma glucose results greater than or equal to 126 mg/dL meet the criteria for diagnosis of diabetes. In the absence of unequivocal hyperglycemia, results should be confirmed by repeat testing. In a patient with classic symptoms of hyperglycemia or hyperglycemic crisis, random plasma glucose results greater than or equal to 200 mg/dL meet the criteria for diagnosis of diabetes. Reference: Standards of Medical Care in Diabetes 2016, [place] Diabetes Association. Diabetes Care. 2016.39(Suppl 1). Performed By: #### 3 016-3, 14653-7 #### [facility] CLIA [id number] [address] [place] [address] [place] Potassium [Moles/Vol] 3.7 mmol/L Normal 3.7-5.1 [facility] Comment on above: Order Comment: Speci men Type: BLOOD SPECIMEN Ordering Facility: [facility] Address: [address] [place] [address] Performed By: #### 3 016-3, 48482-4 #### [facility] CLIA [id number] [address] [place] [address] [place] Protein [Mass/Vol] 7.3 g/dL Normal 6.3-8.0 [facility] Comment on above: Order Comment: Speci men Type: BLOOD SPECIMEN Ordering Facility: [facility] Address: [address] [place] [address] Performed By: #### 3 016-3, 00125-4 #### [facility] CLIA [id number] [address] [place] Sodium [Moles/Vol] 139 mmol/L Normal 136-144 [facility] Comment on above: Order Comment: Speci men Type: BLOOD SPECIMEN Ordering Facility: [facility] Address: [address] [place] [address] Performed By: #### 3 016-3, 76991-7 #### [facility] CLIA [id number] [address] [place] [address] [place] Urea nitrogen [Mass/Vol] 10 mg/dL Normal 7-21 [facility] Comment on above: Order Comment: Speci men Type: BLOOD SPECIMEN [facility] Facility: [facility] Address: [address] [place] [address] Performed By: #### 3 016-3, 98453-8 #### [facility] CLIA [id number] [address] [place] [address] [place] IRON + TIBCon 04-13-2021 Iron [Mass/Vol] 128 ug/dL Normal 41-186 [facility] Comment on above: Order Comment: Speci men Type: BLOOD SPECIMEN [facility] Facility: [facility] Address: [address] [address] Performed By: #### F T4, B12, IRON #### [facility] CLIA [id number] [address] [place] Iron binding capacity [Mass/Vol] 331 ug/dL Normal 232-386 [facility] Comment on above: Order Comment: Speci men Type: BLOOD SPECIMEN [facility]: [facility] Address: [address] [place] [address] Performed By: #### F T4, B12, IRON #### [facility] CLIA [id number] [address] [place] Iron saturation [Mass fraction] 39 % Normal 15-57 [facility] Comment on above: Order Comment: Speci men Type: BLOOD SPECIMEN [facility] Address: [address] [place] [address] Performed By: #### F T4, B12, IRON #### [facility] CLIA [id number] [address] OF [facility] LIPID PANEL BASICon 04-14-19 22 Cholesterol [Mass/Vol] 198 mg/dL Normal <200 [facility] Comment on above: Order Comment: Speci men Type: BLOOD SPECIMEN Order[facility] Facility: [facility] Address: [address] [place] [address] Result Comment: <200 mg/dL, Desirable 200-239 mg/dL, Borderline high >239 mg/dL, High Performed By: #### L IPB #### [facility] CLIA [id number] [address] [place] Cholesterol in HDL [Mass/Vol] 40 mg/dL Normal >39 [facility] Comment on above: Order Comment: Speci men Type: BLOOD SPECIMEN [facility]ing [facility] Address: [address] [place] [address] Result Comment: 40-5 9 mg/dL, Acceptable >59 mg/dL, High: Negative risk factor for coronary heart disease <40 mg/dL, Low: Positive risk factor for coronary heart disease Performed By: #### L IPB #### [facility] CLIA [id number] [address] [place], [place] [address] [place] [address] [facility] Cholesterol in LDL [Mass/Vol] 114 mg/dL High <100 [facility] Comment on above: Order Comment: Marlo pelaez Type: BLOOD SPECIMEN [facility] Address: [address] [place] [address] Result Comment: <100 mg/dL, Optimal 100-129 mg/dL, Near optimal/above optimal 130-159 mg/dL, Borderline high 160-189 mg/dL, High >189 mg/dL, Very high Secondary prevention optimal LDL Cholesterol levels are recommended to be < 70 mg/dL Performed By: #### L IPB #### [facility] CLIA [id number] [address] Cholesterol in LDL/Cholesterol in HDL [Mass ratio] 2.85 {ratio} High <2.54 [facility] Comment on above: Order Comment: Marlo [facility] Type: BLOOD SPECIMEN Order[facility] Facility[facility] Address: [address] [place] [address] Result Comment: Refe rence: 1. National Cholesterol Education Program ATP III Guideline At-A-Glance Quick Desk Reference: National Heart, Lung, and Blood [place]. National Institutes of Health. 2001: NIH Publication No. 01-3305. 2. An International Atherosclerosis Society position paper: global recommendations for the management of dyslipidemia: executive summary, Atherosclerosis. 2014: 232(2):410-413. Performed By: #### L IPB #### [facility] CLIA [id number] [address] [place] [address] [facility] Cholesterol in VLDL [Mass/Vol] 44 mg/dL High <30 [facility] Comment on above: Order Comment: Marlo benigno Type: BLOOD SPECIMEN [facility] Address: [address] [place] [address] Performed By: #### L IPB #### [facility] CLIA [id number] [address] [facility] Cholesterol non HDL [Mass/Vol] 158 mg/dL High <130 [facility] Comment on above: Order Comment: Marlo benigno Type: BLOOD SPECIMEN [facility] Address: [address] [place] [address] Result Comment: <130 mg/dL, Optimal 130-159 mg/dL, Near optimal/above optimal 160-189 mg/dL, Borderline high 190-219 mg/dL, High >219 mg/dL, Very high Secondary prevention optimal non HDL Cholesterol levels are recommended to be <100 mg/dL Performed By: #### L IPB #### [facility] CLIA [id number] [address] [place] [address] Cholesterol.total/Chol esterol in HDL [Mass ratio] 4.95 {ratio} Normal <5.10 [facility] Comment on above: Order Comment: Marlo benigno Type: BLOOD SPECIMEN Order[facility] Facility: [facility] Address: [address] [place] [address] Performed By: #### L IPB #### [facility] CLIA [id number] [address] [place] [address] FASTING TIME 12 hrs Normal [facility] Comment on above: Order Comment: Marlo benigno Type: BLOOD SPECIMEN Order[facility] Facility[facility] Address: [address] [place] [address] Performed By: #### L IPB #### [facility] CLIA [id number] [address] [place] [address] Triglyceride [Mass/Vol] 221 mg/dL High <150 [facility] Comment on above: Order Comment: Abeljaydon pelaez Type: BLOOD SPECIMEN [facility] Facility: [facility] Address: [address] [place] [address] Result Comment: <150 mg/dL, Normal 150-199 mg/dL, Borderline high 200-499 mg/dL, High >499 mg/dL, Very high Performed By: #### L IPB #### [facility] CLIA [id number] [address] [place] [address] [place] T4 FREE/FREE THYROXon 2021 Free T4 [Mass/Vol] 1.0 ng/dL Normal 0.9-1.7 [facility] Comment on above: Order Comment: Marlo pelaez Type: BLOOD SPECIMEN [facility] Address: [address] [place] [address] Performed By: #### F T4, B12, IRON #### [facility] CLIA [id number] [address] [place] TSH SerPl-aCncon 04-13-2021 TSH Qn 5.770 m[IU]/L High 0.270-4.200 [facility] Comment on above: Order Comment: Marlo pelaez Type: BLOOD SPECIMEN [facility] Address: [address] [place] [address] Result Comment: If t he patient is , TSH reference range varies by gestational period: First Trimester (weeks 9-12): 0.180-2.990 mIU/L Second Trimester: 0.110-3.980 mIU/L Third Trimester: 0.480-4.710 mIU/L Jesus Alberto Islas et al. A Practical Approach for the Verifications and Determination of Site- and Trimester-Specific Reference Intervals for Thyroid Function tests in . Thyroid, 2019:29:3:412-420. Tommy E, et al. 2017 Guidelines of the [place] Thyroid Association for the Diagnosis and Management of Thyroid Disease during and the . Thyroid, 2017:27:3:315-389. Performed By: #### 3 016-3, 08743-7 #### [facility] CLIA [id number] [address] [id number] [place] VITAMIN B12 BLOODon 04-14-19 22 Cobalamin (Vitamin B12) [Mass/Vol] 557 pg/mL Normal 232-1,245 [facility] Comment on above: Order Comment: Marlo pelaez Type: BLOOD SPECIMEN [facility] Address: [address] [place] [address] Performed By: #### F T4, B12, IRON #### [facility] CLIA [id number] [address] [facility] VITAMIN D 25 HYDROXYon 04-13 25-hydroxyvitamin D3 [Mass/Vol] 20.8 ng/mL Low 30.0-100.0 [facility] Comment on above: Order Comment: Marlo pelaez Type: BLOOD SPECIMEN [facility] Facility: [facility] Address: [address] [place] [address] Result Comment: Clas sification of 25 [place] Vitamin D status: Deficiency: <= 20.0 ng/ml. Insufficientcy: 21.0-29.0 ng/ml. Sufficiency: >= 30.0 ng/ml. Performed By: #### V ITD #### [facility] CLIA [id number] [address] ZINC BLDon 04-13-2021 Zinc [Mass/Vol] 75 ug/dL Normal 60-120 [facility] Comment on above: Order Comment: Marlo pelaez Type: BLOOD SPECIMEN [facility] Address: [address] [place] [address] Result Comment: This test was developed and its performance characteristics determined by [facility]'s [facility] [place] ([facility]). It has not been cleared or approved by the FDA. -[facility] is regulated under CLIA as qualified to perform high-complexity testing. This test is used for clinical purposes. It should not be regarded as investigational or for research. Performed By: #### Z INC #### [facility] CLIA [id number] [address] [place], [place] [address] [place] CNOVon 04-05-2021 CNOV Office Visit ([facility]) PALLAVI DELANEY ([id number]) 1975 F Date Time Provider Department 04/05/21 9:20 AM SANDIP TRIPP During your visit today, we recorded the following information about you: Temperature Pulse Blood pressure Weight 99.1 degrees 90/minute 126/74 96.6 kg Height 1.727 m Sandip Tripp APRN.CNP 04/13/2021 8:35 PM Signed This note was created using Firstmonieriter. Subjective Pallavi Delaney is a 45 year old female here today for well adult exam. I reviewed past medical, surgical, social, and family histories today and updated chart. Allergies, chronic medications, and supplements were also reviewed. Since she had COVID in October her hair has been falling out She had a mild case, middle of the road, lasted 3 weeks Would like labs updated Sister had [place] and brother had 2 MIs She had a stress test in 2018 Taking vitamin D supplement No hot flashes [...] Brother - Ischemic Heart Disease Brother 42 [place] - other (CABG) Brother - Diabetes Mother [...] ?C (99.1 ?F) Ht 172.7 cm (5' 8") Wt 96.6 kg (213 lb) SpO2 97% [...] are normal. Right eye: No discharge. Left (more content not included)... Normal [facility] 10-27-2020 PAULO Telephone (AGFAMPLE) PALLAVI DELANEY ([id number]) 1975 F Date Time Provider Department 10/27/20 SANDIP TRIPP During your visit today, we recorded the following information about you: Beverly Hercules MA 10/27/2020 1:47 PM Signed Patient called stating her tested positive for covid today 10/27/20 his symptoms started Monday. Patient states that her doctor reccommended that she gets tested, she currently is not having any symptoms. Please advise JANIS Patrick APRN.ABIMBOLA 10/27/2020 4:30 PM Signed We can test her on Day 5 after last exposure with (within 6 feet of each other no mask for more than 15 minutes). She can come out of quarantine if the test is negative and 7 days have passed since last exposure. Otherwise we recommend quarantine for 14 days since last exposure and testing if any symptoms develop. Sandip Tripp APRN.ABIMBOLA Ruiz MA 10/27/2020 5:12 PM Signed Patient notified and will states she will wait . She states she will let us know if she gets any symptoms and will get tested. Lisa Ruiz MA Allergies As of Date: 10/27/2020 Noted Allergy Reaction GLUTEN 03/22/2016 16 - Unknown PORK DERIVED (PORCINE) 03/22/2016 16 - Unknown Date Reviewed: 03/11/2020 Reviewed by: Sandip Lara (Director Maternal Child [place]) ABIMBOLA Tripp - Fully Assessed Reason for Visit: Patient Question [9437] Primary Visit Diagnosis:Exposure to COVID-19 virus [Z20.822] Order(s):2019 CORONAVIRUS [SQCOVID] Order #: [id number] FUTURE Problem List As Of Date 10/27/2020 Noted Resolved Eosinophilic esophagitis [K20.0] 03/22/2016 Hypothyroidism [E03.9] 03/22/2016 Food allergy [Z91.018] 03/22/2016 Gastroesophageal reflux disease with esophagiti*03/22/2016 Obesity, Class I, BMI 30-34.9 [E66.9] 09/15/2017 Arthralgia [M25.50] 09/15/2017 Fatigue [R53.83] 09/15/2017 Generalized edema [R60.1] 09/15/2017 Dense breast tissue [R92.2] 12/11/2018 Plantar fasciitis [M72.2] 03/11/2020 Chronic pain of right ankle [M25.571, G89.29] 03/11/2020 Encounter Status:Closed by LISA RUIZ on 10/27/20 [facility] [place] 09-16-2020 ABIMBOLAN Telephone (AGFAMPLE) PALLAVI DELANEY ([id number]) 1975 F Date Time Provider Department 09/16/20 SANDIP TRIPP During your visit today, we recorded the following information about you: Lisa Ruiz MA 09/16/2020 7:01 AM Signed ----- Message from Karon Dawkins sent at 03/19/2020 4:58 PM EST ----- Regarding: Kamryn patient Patient due for 6 month recheck TSH, see 03/18/20 phone encounter. GUERITA Dawson APRN.[facility] 09/16/2020 10:00 AM Signed Thank you. Please see orders. Sandip Tripp APRN.ABIMBOLA Tripp APRN.ABIMBOLA 09/16/2020 10:01 AM Signed Addended by: SANDIP TRIPP on: 09/16/2020 10:01 AM Modules accepted: Orders Lisa Ruiz MA 09/16/2020 10:16 AM Signed Voicemail left on patient machine with all information. (ok per cc). Lisa Ruiz MA Allergies As of Date: 09/16/2020 Noted Allergy Reaction GLUTEN 03/22/2016 16 - Unknown PORK DERIVED (PORCINE) 03/22/2016 16 - Unknown Date Reviewed: 03/11/2020 Reviewed by: Sandip Lara (Director Maternal Child Time Clerk) ABIMBOLA Tripp - Fully Assessed Reason for Visit: Orders [681] Primary Visit Diagnosis:Hypothyroidis m, unspecified type [E03.9] Order(s):TSH BLD [SQTSH] Order #: [id number] FUTURE Problem List As Of Date 09/16/2020 Noted Resolved Eosinophilic esophagitis [K20.0] 03/22/2016 Hypothyroidism [E03.9] 03/22/2016 Food allergy [Z91.018] 03/22/2016 Gastroesophageal reflux disease with esophagiti*03/22/2016 Obesity, Class I, BMI 30-34.9 [E66.9] 09/15/2017 Arthralgia [M25.50] 09/15/2017 Fatigue [R53.83] 09/15/2017 Generalized edema [R60.1] 09/15/2017 Dense breast tissue [R92.2] 12/11/2018 Plantar fasciitis [M72.2] 03/11/2020 Chronic pain of right ankle [M25.571, G89.29] 03/11/2020 Encounter Status:Closed by LISA RUIZ on 09/16/20 [facility] SCREENINGon 03-26-2020 [facility] SCREENING Final Report DATE OF EXAM: Mar 26 2020 9:20AM LDW 0581 - [facility] SCREENING / PROCEDURE REASON: Breast cancer screening by mammogram Physician Interpretation #[id number] - [facility] SCREENING BILATERAL DIGITAL SCREENING MAMMOGRAM WITH CAD: 03/26/2020 HISTORY: / Screening Mammogram-Patient reports NO symptoms. RESULT: TECHNIQUE: The study was acquired using full field digital technology and interpreted from soft copy. Current study was also evaluated with a Computer Aided Detection (CAD). Comparison is made to exams dated: 01/23/2019 mammogram - [facility] [place], 01/01/2018 mammogram - [facility], 12/25/2015 mammogram - [facility], and 12/16/2013 mammogram - [facility]. The tissue of both breasts is heterogeneously dense. This may lower the sensitivity of mammography. No significant masses, calcifications, or other findings are seen in either breast. There has been no significant interval change. IMPRESSION: NEGATIVE There is no mammographic evidence of malignancy. A 1 year screening mammogram is recommended. Jac krause/carmina:03/26/2020 11:44:23 Scrap Cutter(s): Gorge Hernandez (R)(M), [facility] letter sent: Normal over 40 Mammogram BI-RADS: 1 Negative Multiple national specialty organizations have released breast cancer screening guidelines for women at average risk for developing breast cancer - guidelines that are based on both evidence and opinion, yet differ on when to start and how often to screen for breast cancer. With representation from Breast Imaging, Internal Medicine, Women's Health, Family Medicine, and Medical/Surgical Oncology, the [facility] has carefully reviewed the data and reached the following consensus: 1) All women should engage in shared decision-making with their providers to decide when to start and how often to screen; 2) All women should have the opportunity to start screening mammography at age 40; 3) For women ages 45-55, we recommend annual screening mammograms; 4) For women ages 55 and over, we support both the transition from an annual to a biennial interval if this aligns more with patient's values and preferences, or continuation with annual screening; 5) All women should discuss with their providers when to stop screening mammograms. Corporate Quality Engineer: Carmina Transcribe Date/Time: Mar 26 2020 9:08A Dictated by : JAC KLEIN MD This examination was interpreted and the report reviewed and electronically signed by: JAC KLEIN MD on Mar 26 2020 11:44AM EST Normal [facility] Encounters Encounter Date Encounter Type Care Provider Facility Start: 06-24-2024 End: 06-24-2024 ambulatory Chalon Jeffrey Facility:[facility] Start: 03-05-2024 Encounter for other preprocedural examination Yaw Garduno [facility] Start: 02-28-2024 End: 02-28-2024 ambulatory Janine Bandasujata Facility:[facility] Start: 02-19-2024 End: 02-19-2024 ambulatory Chalon Jeffrey Facility:[facility] Start: 02-13-2024 ambulatory Chalon Jeffrey Facility:[facility] Start: 02-13-2024 End: 02-13-2024 ambulatory Yaw Garduno Facility:[facility] Start: 12-26-2023 End: [facility]-26[facility] Start: 11-19-2023 End: 11-19-2023 Emergency department patient visit Antione Jadahalley Facility:[facility] Start: 04-13-2023 End: 04-13-2023 ambulatory [facility] Work Phone: Start: 04-13-2023 End: 04-13-2023 Patient encounter procedure [facility] Start: 01-17-2023 End: 01-17-2023 ambulatory [facility] Work Phone: Start: 01-17-2023 End: 01-17-2023 Discharged Recurring [facility]-Physical Therapy Work Phone: Start: 01-17-2023 Registered Recurring [facility] Therapy Work Phone: Start: 01-13-2023 End: 01-13-2023 ambulatory [facility] Work Phone: Start: 01-13-2023 End: 01-13-2023 Patient encounter procedure [facility] Work Phone: Start: 11-11-2022 End: 11-11-2022 Patient encounter procedure [facility] Work Phone: Start: 08-16-2022 End: 08-16-2022 ambulatory [facility] Work Phone: Start: 08-16-2022 End: 08-16-2022 Patient encounter procedure [facility]Laboratory, [place] Work Phone: Start: 06-29-2022 End: 06-29-2022 ambulatory [facility] Work Phone: Start: 06-29-2022 End: 06-29-2022 Patient encounter procedure [facility], [place] Work Phone: Start: 06-21-2022 End: 06-21-2022 Patient encounter procedure [facility], [place] Work Phone: Start: 06-20-2022 End: 06-20-2022 Patient encounter procedure [facility]-Outpatient Breast Imaging Work Phone: Start: 04-27-2021 Documentation procedure Mammog noemi Coordinator [facility] Start: 04-27-2021 Letter encounter Mammography Coordinator [place] [facility]CILL[facility] ARE[facility] NOT LISTED Start: 04-27-2021 Telephone encounter Sandip Tripp APRN.CNP Work Phone: [facility] Comment on above: Results Start: 04-27-2021 End: 04-27-2021 Subsequent hospital visit by physician Mammo/Bone Density [facility] Comment on above: Encounter for screen ing mammogram for breast cancer [Z12.31] Procedures Date Procedure Procedure Detail Performing Clinician Start: 06-20-2022 Screening mammography Start: 04-27-2021 End: 04-27-2021 Mammography Sandip Tripp APRN, .CNP Work Phone: Start: 04-05-2021 Adult depression scr eening assessment Sandip Tripp APRN.LASER BEAM TRIM OPERATOR Work Phone: Plan of Treatment Date Care Activity Detail Author Start: 04-13-2026 LIPID SCREEN LIPID SCREEN [facility] Start: 03-11-2025 PAP TESTING PAP TESTING [facility] Start: 04-13-2024 DIABETES SCREEN DIABETES SCREEN [facility] Start: 12-04-2022 HPV TESTING HPV TESTING [facility] Start: 04-27-[address] [facility] Start: 04-05-2022 Adult depression screening assessment DEPRESSION SCREENING [facility] Start: 04-05-2022 ANNUAL PCP TEAM BARREL BANDER SHERRELL DISEASE VISIT ANNUAL PCP TEAM CHRONIC DISEASE VISIT [facility] Start: 04-05-2022 COVID-19 VACCINE (1) COVID-19 VACCIN E (1) [facility] Comment on above: Postponed from 06/17 (Declined at this time) Start: 10-07-2020 Influenza vaccination INFLUENZA (#1) [facility] Start: 2018 COLOGUARD (FIT-DNA) COLOGUARD (FIT-D NA) [facility] Start: 2018 Colonoscopy [address] [facility] Start: 2018 COLORECTAL CANCER SCREENING COLORECTAL CANCER SCREENING [facility] Start: [address] COLONOGRAPHY [facility] Start: 2018 FECAL OCCULT BLOOD FECAL OCCULT BLOO D [facility] Start: 2018 SIGMOIDOSCOPY SIGMOIDOSCOPY [facility] Start: 1992 Urine microalbumin profile DTAP,TDAP,TD (1 - Tdap) [facility] Thyroglobulin antibo dy measurement [facility] Thyroperoxidase Ab [Units/volume] in Serum or Plasma [facility] Payers Date Payer Category Payer Self-pay [id number] 2023 Unknown [id number] 2017 Unknown [employer] MATTHEW LINLYNETTE FATMATA [id number] 2017-Present [phone] [address] [place] [address] Indemnity [id number] Unknown [employer] [id number] Unknown [id number] Unknown [id number] Unknown [id number] Unknown [id number] Unknown [id number] Unknown [id number] Unknown [id number] Unknown [id number] Social History Date Type Detail Facility Start: 08-22-2013 Tobacco smoking stat us NHIS Never smoked tobacco [facility] Start: 08-22-2013 Tobacco use and exposure Smokeless tobacco non-user [facility] Start: 04-05-2021 Alcohol intake Current drinke r of alcohol (finding) [facility] Start: 03-22-2016 History SDOH Alcohol Comment rarely [facility] Start: 1975 Sex Assigned At Not on file C [facility] Start: 04-17-2021 End: 04-27-2021 Exposure to SARS-CoV-2 (event) Not sure [facility] Start: 04-29-2020 End: 04-29-2020 Tobacco smoking status NHIS Unknown if ever smoked [facility] Start: 1975 Sex Assigned At Female [facility] Clinical Notes 06-05-2020 to 02-13-2024 Note Date & Type Note Facility 02-13-2024 Note [facility] Medical Records Department [address] [place] [address] History Physical Exam 02/13/24 1309 MR#: [id number] Acct: [id number] Name: PALLAVI DELANEY Rep #: [id number] : 1975 48 From: Yaw Garduno DO PCP: Dr. Gavin Murphy MD Status:REG [facility] Location: [place] [address] HPI - General General Date of Admission: 02/13/24 Date of Service: 02/13/24 Chief Complaint: Dysphagia HPI Narrative PALLAVI DELANEY is a 48 F who presents Chief Complaint: Dysphagia Details: PALLAVI DELANEY, is a 48 F who presents to the office today for establishment with [facility]. Pt has had issues with dysphagia for 11 years now. She had an EGD in the past which showed some esophagitis which was treated with omeprazole but she did not notice any change in her symptoms. She will often get food stuck in her esophagus while eating. She is unable to predict when this will happen and has not noticed any food triggers. She has gone to the ED for this one two occasions. Typically she will drink a lot of water and eventually regurgitate it back up. This is uncomfortable for her. She denies abdominal pain, n/v, constipation, diarrhea or blood in her stool. [facility] Medical History Thyroid disease Non-smoker History of stress test Hypothyroidism Hypertension Home Medications ???Medication ???Instructions ???Recorded ???Last Taken ???Type levothyroxine 50 mcg tablet 50 mcg PO DAILY 11/19/23 Unknown History lisinopril 20 mg tablet 20 mg PO DAILY 11/19/23 Unknown History multivitamin (Daily Multi-Vitamin 1 tab PO DAILY 02/09/24 Unknown History tablet) Allergy/AdvReac Type Severity Reaction Status Date / Time No Known Allergies Allergy Verified 02/13/24 12:23 Surgical History Hx of vein stripping Social History Smoking Status: Never smoker alcohol intake: never ROS Constitutional Constitutional: Denies fatigue, fever(s), poor appetite, weight gain or weight loss Gastrointestinal Gastrointestinal: Denies belching, bloating, change in bowel habits, change in stool character, chewing difficulty, coffee ground emesis, constipation, cramping, diarrhea, dyspepsia, dysphagia, early satiety, excessive flatus, fecal incontinence, heartburn, hematemesis, hematochezia, hemorrhoids, loose stools, melena, nausea, odynophagia, rectal bleeding, tenesmus, vomiting or weight changes Vital Signs Vital Signs Vital Signs: 02/13/24 12:32 02/13/24 12:32 Temperature 98 F Temperature Source Temporal Pulse Rate 78 Respiratory Rate 16 Respiratory Pattern Normal Blood Pressure 130/79 H Blood Pressure Mean 96 Blood Pressure Source Monitor Blood Pressure Position Semi-Fowlers Blood Pressure Location Left Arm Pulse Ox 99 Oxygen Delivery Method Room Air Weight Weight: 209 lb 7.026 oz Body Mass Index (BMI) 30.9 Physical Exam Const alert, oriented x3, no apparent distress and healthy appearing General Appearance: cooperative GI normal to inspection, nondistended, normoactive bowel sounds, soft to palpation, non-tender and non- distended Percussion: normal to percussion Rectal Exam: deferred Results Lab / Micro Data Labs: Laboratory Results - last 24 hr 02/13/24 12:14: Urine Test Negative Assessment Plan Assessment/Plan (1) Dysphagia: PLAN: Assessment and Plan Assessment and Plan (1) Dysphagia: Plan: This is a 48 yo female pt here today for evaluation of dysphagia for 11 years. She has difficulty swallowing with food getting stuck a few times per week. It is unpredictable and not associated with certain foods. She will need to undergo EGD to evaluate for GERD, stricture or dysmotility. We can consider further diagnostics with manometry in the future. We discussed treatment option for esophageal dysmotility. -EGD w/ dilation if indicated -Consider manometry -f/u after procedure 02/13/24 1311 Cosigner Signature (if applicable): CC: Dr. Gavin Murphy MD; Yaw Friend, DO Signed [facility] 01-17-2023 Discharge summary Note Date/Time January 17, 2023 10:08am [facility] Physical Therapy [facility] [address] [place] [address]. [address] [place] [address] / REHABILITATION SERVICES DISCHARGE SUMMARY MR#: [id number] Acct: [id number] Name: PALLAVI DELANEY Rep #: [id number] : 1975 47 From: Emilia Recinos Referring DrKsenia: Sandip Holden DO Status: REG RCR Insurance: [facility] SELF PAY INSURANCE Discharge Summary D/C summary: It has been my pleasure to treat PALLAVI DELANEY referred by Sandip Holden DO,with the diagnosis of R ankle pain for a total of 11 visit(s). Discharge Date: 01/17/23 Please see the following information for a summary of their discharge status. Subjective Subjective: Pt able to walk 3-4 miles without difficulty. She is happy with hermovement and wants it to stay that way. She was actually able to jump rope. She wants to get better but is so much better as of right now Pain R ankle pain: Pain Intensity (Out of 10): 2 Overall Improvement % Improvement: 50 Objective Objective/Function: R ankle MMT: DF 13.3, PF 14.8, INV 6.9, EV 6.5 R ankle AROM D 7, PF 44, INV 15, EV 8 Stairs: up recip with 1 hand rail but descending she is not able to bend the R ankle descending the step without a "hop" Gait: Still walks with a little more stance time on the L but MUCH improved Goals Goal 1:: I HEP Goal Progress: Goal Met Goal 2:: Be able to walk with normal gait pattern with equal stance time on B LE's Goal Progress: Progressing Goal 3:: Increase R ankle AROM (at time of the eval: R ankle AROM DF-2, PF 44, INV 10, EV 8 L ankle AROM 0, 28, 24, 10) Goal Progress: Goal Met Goal 4:: Increase R ankle strength (at time of the eval: R ankle MMT: DF 9.5, PF 9.4, INV 5.7, EV 5.6 L ankle MMT 13.9, 15.4, 6.3, 7.2) Goal Progress: Goal Met Goal 5:: Be able to go up and down the stairs recip with normal pattern and one hand rail for safety if needed. Goal Progress: Progressing Plan Plan: DC PT to HEP D/C Information Discharge Comments: DC PT to HEP d/c sentence: If there are questions or concerns regarding this patient's physical therapy, please feel free to call me at [phone]. Thank you for the referral of thispatient. Sincerely, Emilia Dunlap, MPT Balance/Gait/Functional tests Balance/Special Test Scores Lower Extremity Functional Score: 57 Improvement % Improvement: 50 <Electronically signed by Emilia Dunlap MPT> 01/17/23 1008 CC: Sandip Holden, DO ~ Signed [facility] Work Phone: [phone]) 378-386705-16-2023 NotePap Smear Specimen AdequacyMay 2022 1:30pmComment.Satisfactory for evaluation. Endocervical and/or squamous metaplasticcells (endocervical component)are present.[facility] INTERFACED A#[id number] Mansfield HospitalComment on above:Satisfactory for evaluation. Endocervical and/or squamous metaplasticcells (endocervical component)are present.06-21-2022 NotePap Smear Specimen AdequacyMay 2022 1:30pmComment.Satisfactory for evaluation. Endocervical and/or squamous metaplasticcells (endocervical component)are present.[facility] INTERFACED A#[id number] Mansfield HospitalComment on above:Satisfactory for evaluation. Endocervical and/or squamous metaplasticcells (endocervical component)are present.04-27-2021 Miscellaneous Notes* Telephone Encounter - Beverly Hercules MA - 04/27/2021 5:05 PM EDT Called patient and informed her patient voiced and understood Beverly Hercules MA * Telephone Encounter - Beverly Hercules MA - 04/27/2021 5:05 PM EDT ----- Message from Sandip Tripp APRN.LASER BEAM TRIM OPERATOR sent at 04/27/2021 5:00 PM EDT ----- Normal. Sandip Tripp APRN.CNP [facility] Miscellaneous Notes* Letter - Mammography Coordinator - 04/27/2021 12:40 PM EDT [address] [address] April 27, 2021 PID: [id number] Pallavi Delaney [address] [place] [address] Dear Ksenia Duncanblack, We are pleased to inform you that [...] report will be kept on file at [facility] as part of your permanent medical record and are available for your continuing care. Thank you for allowing us to help in meeting your health care needs. Sincerely, Dr. Sarmiento Interpreting Radiologist [facility] (Normal over 40) documented [facility]-2022 NoteHNO ID: [id number] Author: JAVI Hernandez) Service: ? Author Type: Technologist Type: Progress Notes Filed: 04/27/2021 9:52 AM Note Text: Radiology Service Progress Note PATIENT NAME: Pallavi Delaney DATE OF SERVICE: April 27, 2021 TIME: [...] PERIPHERAL IV DATA: Not applicable SIGNED BY: JAVI Hernandez) April 27, 2021 9:52 [facility]03-22-2022 History of Present illness Narrative* JAVI Hernandez) - 04/27/2021 9:30 AM EDT Radiology Service Progress Note PATIENT NAME: Pallavi Delaney DATE OF SERVICE: April 27, 2021 TIME: 9:52 AM PATIENT IDENTITY VERIFICATION COMPLETED USING TWO (2) IDENTIFIERS: Name and Date of confirmedby patient verbally. FALL SCREENING: Has the patient [...] 27, 2021 9:52 AM documented in [facility]-2022 NoteHNO ID: [id number] Author: Sandip Tripp APRN.LASER BEAM TRIM OPERATOR Service: ? Author Type: Nurse Practitioner Type: Progress Notes Filed: 04/13/2021 8:35 PM Note Text: This note was created using Firstmonieriter. Subjective Pallavi Delaney is a 45 year old female here today for well adult exam. I reviewed past medical, surgical, social, and family histories today and updated chart. Allergies, chronic medications, and supplements were also reviewed. Since she had COVID in October her hair has been falling out She had a mild case, middle of the road, lasted 3 weeks Would like labs updated Sister had [place] and brother had 2 MIs She had a stress test in 2018 Taking vitamin D supplement No hot flashes [...] Brother - Ischemic Heart Disease Brother 42 [place] - other (CABG) Brother - Diabetes Mother [...] ?C (99.1 ?F) Ht 172.7 cm (5' 8") Wt 96.6 kg (213 lb) SpO2 97% [...] Cardiovascular: Rate and Rhy (more content not included)...[facility]04-30-2021 NoteHNO ID: [id number] Author: Peg Beaver, MANOHAR Service: ? Author Type: Physical Therapist Type: Progress Notes Filed: 06/05/2020 2:26 PM Note Text: 06/05/2020 [facility] PHYSICAL THERAPY [...] therapy or scheduled additional follow-up appointments. Peg Beaver, [facility] note* Diagnosis Encounter for screening mammogram for breast cancer documented in this encounter [facility] noteNo assessment information availableWPeoples Hospital Work Phone: Reason for referral (narrative)* Diagnostic Procedure Only (Routine) - Closed Specialty Diagnoses / Procedures Referred By Contac t Referred To Contact [facility] Diagnoses Encounter for screening mammogram for breast cancer Procedures STAN SCREENING SCREENING MAMMOGRAPHY BI 2-VIEW BREAST INC CAD Sandip Tripp, STRUCTURER.LASER BEAM TRIM OPERATOR [address] [place] [address] [facility] [address] [place] [address] Referral ID Status Reason Start Date Expiration Date V isits Requested Visits Authorized [id number] Closed Auto-Generate d Referral 04/05/2021 05/05/[address] [facility] Summary Purpose Family History No Family History Records FoundNo Family History Records FoundNo Family History Records FoundNo Family History Records Found Advance Directives No Advanced Directives Records FoundNo Advanced Directives Records FoundNo Advanced Directives Records FoundNo Advanced Directives Records Found Chief Complaint and Reason for Visit Chief Complaint SCREENING EORDER - CMP ONLY EORDER Chief Complaint EORDER CHRONIC RT ANKLE PAIN/RX HERE Chief Complaint CHRONIC RT ANKLE GRAEME N/RX HERE Additional Source Comments INFORMATION SOURCE (unrecogn ized section and content) DATE CREATED AUTHOR 03/28/2020 [facility] DATE CREATED AUTHOR AUTHOR'S ORGANIZ ATION 04/28/2021 [facility] DATE CREATED AUTHOR AUTHOR'S ORGANIZ ATION 04/30/2021 [facility] DATE CREATED AUTHOR AUTHOR'S ORGANIZ ATION 07/04/2024 [facility] Source Comments (unrecognize d section and content) In the event this informatio n is protected by the Federal Confidentiality of Alcohol and Drug Abuse Patient Records regulations: The Federal rules restrict any use of the information to criminally investigate or prosecute any alcohol or drug abuse patient.[facility] HospitalIn the event this information is protected by the Federal Confidentiality of Alcohol and Drug Abuse Patient Records regulations: The Federal rules restrict any use of the information to criminally investigate or prosecute any alcohol or drug abuse patient.[facility] HospitalIn the event this information is protected by the Federal Confidentiality of Alcohol and Drug Abuse Patient Records regulations: The Federal rules restrict any use of the information to criminally investigate or prosecute any alcohol or drug abuse patient.[facility] Reason for Visit (unrecogniz ed section and content) Reason Comments Results Specialty Diagnoses / Procedures Referred By Sulaiman t Referred To Contact [facility] Diagnoses z12.31 Procedures Screening Mammogram Sandip Tripp APRN.LASER BEAM TRIM OPERATOR [address] [place] [address] [facility] [address] [place] [address] Referral ID Status Reason Start Date Expiration Date V isits Requested Visits Authorized [id number] Closed Financial Clearance Not Required 04/20/2021 06/19/2021 1 1 Care Teams (unrecognized sec tion and content) [employer] Relationship Specialty Start Date End Date Sandip Tripp APRN.LASER BEAM TRIM OPERATOR [address] [place], [place] [id number] PCP - General Family Practice 04/05/16 [employer]rain [employer]loader [employer] Relationship Specialty Start Date End Date Sandip Tripp APRN.CNP [address], [place] [id number] PCP - General Family Practice 04/05/16 Grain Unloader [employer] Relationship Specialty Start Date End Date Kamryn Sandip Lara, STRUCTURER.LASER BEAM TRIM OPERATOR [address] [facility] [place] [place] [address] PCP - General Family Practice 04/05/16 Team Status: Active Member Role Status Dates No Primary Care Physician Family Provider Active Sandip Holden , DO Primary Care Provider Active Team Status: Inactive Member Role Status Dates Sandip Holden , DO Primary Care Provi federico, Attending Provider, Referring Provider Active Team Status: Inactive Member Role Status Dates Sandip Holden , DO Primary Care Provider Active CHASITY Barahona Attending Provider Active Team Status: Active Member Role Status Dates Sandip Holden , Primary Care Provi federico, Attending Provider, Referring Provider Active Team Status: Inactive Member Role Status Dates Sandip Holden , DO Primary Care Provider, Attending Provider Active Goals (unrecognized section and content) Goals may be documented in a n alternate sectionGoals may be documented in an alternate sectionGoals may be documented in an alternate sectionGoals may be documented in an alternate sectionGoals may be documented in an alternate section FOR RECORDS PERTAINING TO PATIENTS WHO ARE [...] BE BASED ON THE PRIMARY CLINICAL RECORDS. [employer] provides no warranty or guarantee of the accuracy or completeness of information in this document.
[2024-09-03 14:08] LABS: Vitamin D 1,25-Dihydroxy 45.4 pg/mL (24.8-81.5)
== END | disposition home or self-care (01) ==
LOC: MFPLAB 09:30
PROVIDERS: PCP Family Medicine; Referring Provider Family Medicine; Visit Provider Family Medicine
DX: Z13.1 Encounter for screening for diabetes mellitus (principal); E55.9 Vitamin D deficiency, unspecified; E03.9 Hypothyroidism, unspecified
CPT/HCPCS: 36415; 82607; 82652; 83036; 84443